=== PATIENT | male | born 1940 | race Caucasian/White ===

== ENCOUNTER 2018-03-23 12:13 | Emergency (ER) | payer MEDICARE, BC ==
[2018-03-23 12:39] VITALS: BP 143/79
--- NOTE | 2018-03-23 13:57 | UC ---
Hip/Pelvis Pain - HPI Summary HPI Summary: states yesterday he was mowing his lawn all day and lifting chairs up a staircase after which he had right low back and hip pain which resolved with ibuprofen and then with tylenol. Patient states he does not have any pain at the moment, no radiation, no limitation with ambulation. - History Of Current Complaint Chief Complaint: UCBackPain Stated Complaint: BACK PAIN Time Seen by Provider: 03/23/18 12:50 Hx Obtained From: Patient Onset/Duration: Sudden Onset, Lasting Hours Timing: Constant Severity Initially: Moderate Severity Currently: None Pain Intensity: 0 Location: Discrete At: - right hip and low back Character Of Pain: Aching Aggravating Factor(s): Movement Alleviating Factor(s): OTC Medications Associated Signs And Symptoms: Positive: Negative - Risk Factors Septic Arthritis Risk Factor: Negative - Allergies/Home Medications Allergies/Adverse Reactions: Allergies Allergy/AdvReac Type Severity Reaction Status Date / Time No Known Allergies Allergy Verified 01/05/16 15:05 Home Medications: Home Medications Acetaminophen [Tylenol] 650 mg PO Q6HR PRN 03/23/18 [History Confirmed 03/23/18] PMH/Surg Hx/FS Hx/Imm Hx Previously Healthy: Yes Endocrine History: Hypothyroidism Cardiovascular History: Hypertension - Surgical History Surgical History: Yes Surgery Procedure, Year, and Place: rt. knee replacement. rt. shoulder replacement - Social History Alcohol Use: Daily Alcohol Amount: 1 PER DAY Substance Use Type: None Smoking Status (MU): Former Smoker Amount Used/How Often: <1 PPD X 20 YEARS Have You Smoked in the Last Year: No When Did the Patient Quit Smoking/Using Tobacco: 1980 Review of Systems Musculoskeletal: Arthralgia, Myalgia All Other Systems Reviewed And Are Negative: Yes Physical Exam Triage Information Reviewed: Yes Appearance: Well-Appearing, No Pain Distress, Well-Nourished Vital Signs: Initial Vital Signs Temp 98.8 F 03/23/18 12:30 Pulse 68 03/23/18 12:30 Resp 18 03/23/18 12:30 BP 143/79 03/23/18 12:30 Pulse Ox 98 03/23/18 12:30 Vital Signs Reviewed: Yes Eyes: Positive: Conjunctiva Clear ENT: Positive: Hearing grossly normal Neck: Positive: Nontender Respiratory: Positive: Chest non-tender Cardiovascular: Positive: Pulses Normal, Brisk Capillary Refill Musculoskeletal Exam: Other - tender on right pyriformis muscle area, SLR negative, Idania negative, DTR symmetric and present Hip Injury Course/Dx - Course Course Of Treatment: patient's pain was resolved with OCD medications, d/w patient management, states he will monitor at home, if pain recurs, will f/u with PCP to assess need for imaging, stretching exercises d/w patient. Continue motrin or tylenol prn, ice packs. xray order was misplaced and patient states he does not want the xray anymore and that he can f/u with PMD - Differential Dx/Diagnosis Provider Diagnoses: Piriformis muscle spasm/strain Discharge - Sign-Out/Discharge Documenting (check all that apply): Discharge/Admit/Transfer - Discharge Plan Condition: Good Disposition: HOME Patient Education Materials: Low Back Strain (ED), Piriformis Syndrome (ED) Referrals: Alexus Spence MD [Primary Care Provider] - - Billing Disposition and Condition Condition: GOOD Disposition: Home
== END 2018-03-23 13:38 | disposition left against medical advice (07) ==
LOC: MERGE 12:13 → UNMERGE 12:13 → UCEAST 12:13
DX: M62.838 Other muscle spasm (principal); S76.911A Strain of unspecified muscles, fascia and tendons at thigh level, right thigh, initial encounter; X50.3XXA Overexertion from repetitive movements, initial encounter; Y93.9 Activity, unspecified; Y92.9 Unspecified place or not applicable; E03.9 Hypothyroidism, unspecified; I10 Essential (primary) hypertension; Z96.651 Presence of right artificial knee joint; Z96.611 Presence of right artificial shoulder joint; Z87.891 Personal history of nicotine dependence

== ENCOUNTER 2019-04-07 11:43 | Emergency (ER) | payer MEDICARE, BC, OTHER ==
[2019-04-07 12:01] VITALS: BP 115/65
--- NOTE | 2019-04-07 12:37 | ED ---
Influenza-Like Illness - HPI Summary HPI Summary: Patient is a 78-year-old male who presents to the emergency department with with a chief complaint of having weakness, decreased appetite, fevers of 103 this morning, fatigue and body aches. Pt feels "washed out." states pt feels chills and hot and sweaty. pt states temp max 103 this am. pt has not been feeling well for about 1 week, fever the last 3 days. - History of Current Complaint Chief Complaint: UCRespiratory Time Seen by Provider: 04/07/19 12:13 Hx Obtained From: Patient Onset/Duration: Gradual Onset Severity: Mild Associated Signs & Symptoms: Fever, Myalgia, Cough - Allergy/Home Medications Allergies/Adverse Reactions: Allergies Allergy/AdvReac Type Severity Reaction Status Date / Time No Known Allergies Allergy Verified 04/07/19 12:00 Home Medications: Home Medications Amlodipine Besylate [Amlodipine 2.5 mg tab] 2.5 mg PO DAILY 04/07/19 [History Confirmed 04/07/19] Levothyroxine TAB* [Synthroid TAB*] 175 mcg PO 0600 04/07/19 [History Confirmed 04/07/19] PMH/Surg Hx/FS Hx/Imm Hx Previously Healthy: Yes Endocrine/Hematology History: Reports: Hx Thyroid Disease Denies: Hx Diabetes Cardiovascular History: Reports: Hx Hypertension Denies: Hx Pacemaker/ICD Respiratory History: Reports: Hx Sleep Apnea Denies: Hx Asthma, Hx Chronic Obstructive Pulmonary Disease (COPD) GI History: Denies: Hx Ulcer Musculoskeletal History: Reports: Hx Arthritis - MOST JOINTS, MILD EXCEPT FOR RIGHT LEG Sensory History: Reports: Hx Cataracts - BILATERAL, Hx Contacts or Glasses - READING GLASSES Denies: Hx Hearing Aid Opthamlomology History: Reports: Hx Cataracts - BILATERAL, Hx Contacts or Glasses - READING GLASSES - Surgical History Surgery Procedure, Year, and Place: rt. knee replacement. rt. shoulder replacement Hx Anesthesia Reactions: No Infectious Disease History: No Infectious Disease History: Reports: Hx Shingles - 1990s, NO RESIDUAL PROBLEMS Denies: Hx Hepatitis, Hx Human Immunodeficiency Virus (HIV), Traveled Outside the [place] in Last 30 Days - Family History Known Family History: Positive: Non-Contributory - Social History Alcohol Use: Daily Alcohol Amount: 1 PER DAY Substance Use Type: Reports: None Hx Tobacco Use: Yes Smoking Status (MU): Former Smoker Amount Used/How Often: <1 PPD X 20 YEARS Have You Smoked in the Last Year: No Review of Systems Positive: Fever, Chills Eyes: Negative ENT: Negative Cardiovascular: Negative Positive: Cough Gastrointestinal: Negative Genitourinary: Negative Musculoskeletal: Negative Skin: Negative Neurological: Negative Psychological: Normal All Other Systems Reviewed And Are Negative: Yes Physical Exam - Summary Physical Exam Summary: VITAL SIGNS: Reviewed. GENERAL: Patient is a well developed and nourished male who is lying comfortably in the stretcher. Patient is not in any acute respiratory distress. HEAD AND FACE: No signs of trauma. No ecchymosis, hematomas or skull depressions. No sinus tenderness. EYES: PERRLA, EOMI x 2, No injected conjunctiva, no nystagmus. EARS: Hearing grossly intact. Ear canals and tympanic membranes are within normal limits. MOUTH: Oropharynx within normal limits. NECK: Supple, trachea is midline, no adenopathy, no JVD, no carotid bruit, no c- spine tenderness, neck with full ROM. CHEST: Symmetric, no tenderness at palpation LUNGS: Clear to auscultation bilaterally. No wheezing or crackles. CVS: Regular rate and rhythm, S1 and S2 present, no murmurs or gallops appreciated. ABDOMEN: Soft, non-tender. No signs of distention. No rebound no guarding, and no masses palpated. Bowel sounds are normal. EXTREMITIES: FROM in all major joints, no edema, no cyanosis or clubbing. NEURO: Alert and oriented x 3. No acute neurological deficits. Speech is normal and follows commands. SKIN: Dry and warm Triage Information Reviewed: Yes Vital Signs On Initial Exam: Initial Vitals Temp Pulse Resp BP Pulse Ox 99.4 F 86 18 115/65 95 04/07/19 11:54 04/07/19 11:54 04/07/19 11:54 04/07/19 11:54 04/07/19 11:54 Vital Signs Reviewed: Yes Diagnostics - Vital Signs Vital Signs Temp Pulse Resp BP Pulse Ox 04/07/19 11:54 99.4 F 86 18 115/65 95 - Laboratory Lab Statement: Any lab studies that have been ordered have been reviewed, and results considered in the medical decision making process. Flu Symptom Course/Dx - Course Assessment/Plan: In the urgent care the patient is well-appearing, not ill looking. He is comfortable and hemodynamically stable. Chest x-ray impression : no acute cardiopulmonary pathology. Urinalysis: Urinalysis with 2+ protein, trace ketones, trace blood, and 1+ bilirubin. In the urgent care course unable to find the source of infection. The patient is afebrile in the urgent care. Therefore, the patient was advised to follow with the primary care physician tomorrow or if he develops any other symptom he shell go to the emergency room for further workup and management. The patient understands and agrees. - Diagnoses Provider Diagnoses: Fever, Weakness Discharge - Sign-Out/Discharge Documenting (check all that apply): Patient Departure All imaging exams completed and their final reports reviewed: Yes - Discharge Plan Condition: Stable Disposition: HOME Patient Education Materials: Fever in Adults (ED), Weakness (ED) Referrals: Alexus Spence MD [Primary Care Provider] - Additional Instructions: Increase her water intake. Increase your fluid intake F/U with PCP in the next day Return to the if symptoms worsen - Billing Disposition and Condition Condition: STABLE Disposition: Home
== END 2019-04-07 13:20 | disposition home or self-care (01) ==
LOC: UCEAST 11:43
DX: R50.9 Fever, unspecified (principal); R53.83 Other fatigue; I10 Essential (primary) hypertension; E07.9 Disorder of thyroid, unspecified; Z87.891 Personal history of nicotine dependence
CPT/HCPCS: 71046; 81003; 99211; G0463

== ENCOUNTER 2019-04-08 16:05 | Inpatient (IN) | payer MEDICARE, BC, OTHER ==
[2019-04-08] MEDS ORDERED: NS 0.9% 1000 ML** 1,000 ML IV.FLUID IV ONE (16:36)
[2019-04-08 17:33] LABS: Hematocrit 31 % (42-52); Hemoglobin 10.7 g/dL (14.0-18.0); Mean Corpuscular HGB Conc 35 g/dL (31-36); Mean Corpuscular Hemoglobin 29 pg (27-31); Mean Corpuscular Volume 85 fL (80-94); Red Blood Count 3.66 10^6 /uL (4.18-5.48); Red Cell Distribution Width 15 % (10-15); White Blood Count 4.1 10^3/uL (3.5-10.8)
[2019-04-08 17:37] LABS: Activated Partial Thrombo Time 34.4 seconds (26.0-38.0); INR 1.36 (0.82-1.09)
[2019-04-08 17:39] LABS: Urine Appearance Cloudy; Urine Bacteria Absent (Absent); Urine Bilirubin Negative (Negative); Urine Blood 2+ (Negative); Urine Color Amber; Urine Glucose Negative (Negative); Urine Ketones Negative (Negative); Urine Nitrite Negative (Negative); Urine Protein 2+(100 mg/dL) (Negative); Urine Red Blood Cell 3+(>10/hpf) (Absent); Urine Specific Gravity 1.028 (1.010-1.030); Urine Urobilinogen Positive (Negative); Urine White Blood Cell Trace(0-5/hpf) (Absent)
[2019-04-08 18:03] LABS: ABS Lymphocytes 0.9 10^3/ul (1.0-4.8); ABS Neutrophils 2.2 10^3/ul (1.5-7.7); Lymphocyte % 22.6 %; Mean Platelet Volume 8.7 fL (7.4-10.4); Nucleated Red Blood Cells % 0.1; Platelet Count 64 10^3/uL (150-450)
[2019-04-08 18:04] LABS: ALT 43 U/L (7-52); AST 55 U/L (13-39); Albumin 3.2 g/dL (3.2-5.2); Albumin/Globulin Ratio 0.9 (1-3); Alkaline Phosphatase 45 U/L (34-104); Anion Gap 7 mmol/L (2-11); BUN/Creatinine Ratio 19.1 (8-20); Blood Urea Nitrogen 27 mg/dL (6-24); C Reactive Protein 232.22 mg/L (<8.01); CO2 Carbon Dioxide 23 mmol/L (22-32); Calcium 8.4 mg/dL (8.6-10.3); Chloride 103 mmol/L (101-111); EGFR Non-African American 48.7 (>60); Globulin 3.4 g/dL (2-4); Glucose 136 mg/dL (70-100); Potassium 4.2 mmol/L (3.5-5.0); Sodium 133 mmol/L (135-145); Total Protein 6.6 g/dL (6.4-8.9)
[2019-04-08 18:10] LABS: Troponin I 0.04 ng/mL (<0.04)
[2019-04-08 19:54] LABS: Troponin I 0.04 ng/mL (<0.04)
--- NOTE | 2019-04-08 21:06 | ED ---
HPI Febrile Illness - HPI Summary HPI Summary: Patient complains of fever up to 130 3 days, diaphoresis, weakness, decreased by mouth intake and body aches. States "not feeling well" x 1 week. Seen at urgent care yesterday for same. Seen by PCP today. Denies headache, sore throat, ear pain, neck stiffness, cough, CP, SOB, N/V/D, abdominal pain, change in urine, change in BM. Medical history is hypothyroid, hypertension, A. fib. Chest x-ray and UA at urgent care on 04/07 negative. - History of Current Complaint Chief Complaint: EDFever Time Seen by Provider: 04/08/19 16:33 Hx Obtained From: Patient Onset/Duration: Started Days Ago Timing: Intermittent Current Severity: None Pain Intensity: 0 Pain Scale Used: 0-10 Numeric Associated Signs and Symptoms: Negative - Allergy/Home Medications Allergies/Adverse Reactions: Allergies Allergy/AdvReac Type Severity Reaction Status Date / Time No Known Allergies Allergy Verified 04/08/19 16:14 Home Medications: Home Medications Acetaminophen [Tylenol Extra Strength] 1,000 mg PO Q6HR 04/08/19 [History Confirmed 04/08/19] Acetaminophen [Tylenol Extra Strength] 1,000 mg PO Q6HR PRN 04/08/19 [History Confirmed 04/08/19] Levothyroxine TAB* [Synthroid TAB*] 150 mcg PO EVERY OTHER DAY 04/08/19 [ History Confirmed 04/08/19] Losartan TAB* [Cozaar TAB*] 50 mg PO DAILY 04/08/19 [History Confirmed 04/08/19] Sildenafil (NF) [Viagra (NF)] 100 mg PO DAILY PRN 04/08/19 [History Confirmed ] Tamsulosin CAP* [Flomax CAP*] 0.4 mg PO DAILY 04/08/19 [History Confirmed ] amLODIPine TAB* [Norvasc 5 mg TAB*] 2.5 mg PO DAILY 04/08/19 [History Confirmed 04/08/19] dilTIAZem HCl [Dilt-Xr] 120 mg PO DAILY 04/08/19 [History Confirmed 04/08/19] PMH/Surg Hx/FS Hx/Imm Hx Endocrine/Hematology History: Reports: Hx Thyroid Disease Denies: Hx Diabetes Cardiovascular History: Reports: Hx Hypertension Denies: Hx Pacemaker/ICD Respiratory History: Reports: Hx Sleep Apnea Denies: Hx Asthma, Hx Chronic Obstructive Pulmonary Disease (COPD) GI History: Denies: Hx Ulcer Musculoskeletal History: Reports: Hx Arthritis - MOST JOINTS, MILD EXCEPT FOR RIGHT LEG Sensory History: Reports: Hx Cataracts - BILATERAL, Hx Contacts or Glasses - READING GLASSES Denies: Hx Hearing Aid Opthamlomology History: Reports: Hx Cataracts - BILATERAL, Hx Contacts or Glasses - READING GLASSES EENT History: Denies: Hx Deafness Neurological History: Denies: Hx Developmental Delay Psychiatric History: Denies: Hx Autism - Surgical History Surgery Procedure, Year, and Place: rt. knee replacement. rt. shoulder replacement Hx Anesthesia Reactions: No Infectious Disease History: No Infectious Disease History: Reports: Hx Shingles - , NO RESIDUAL PROBLEMS Denies: Hx Hepatitis, Hx Human Immunodeficiency Virus (HIV), Traveled Outside the [place] in Last 30 Days - Family History Known Family History: Positive: Non-Contributory - Social History Alcohol Use: Daily Alcohol Amount: 1 PER DAY Substance Use Type: Reports: None Hx Tobacco Use: Yes Smoking Status (MU): Former Smoker Amount Used/How Often: <1 PPD X 20 YEARS Have You Smoked in the Last Year: No Review of Systems Positive: Fatigue Eyes: Negative ENT: Negative Cardiovascular: Negative Respiratory: Negative Gastrointestinal: Negative Genitourinary: Negative Positive: Myalgia Skin: Negative Positive: Weakness Psychological: Normal All Other Systems Reviewed And Are Negative: Yes Physical Exam - Summary Physical Exam Summary: Lung sounds clear to auscultation bilaterally. Abdomen soft nontender. No peripheral edema. RRR. ENT exam unremarkable. Triage Information Reviewed: Yes Vital Signs On Initial Exam: Initial Vitals Temp Pulse Resp BP Pulse Ox 100.5 F 92 20 110/49 95 04/08/19 16:11 04/08/19 16:11 04/08/19 16:11 04/08/19 16:11 04/08/19 16:11 Vital Signs Reviewed: Yes Appearance: Positive: Well-Appearing Skin: Positive: Warm Head/Face: Positive: Normal Head/Face Inspection Eyes: Positive: Normal ENT: Positive: Normal ENT inspection Neck: Positive: Supple Respiratory/Lung Sounds: Positive: Clear to Auscultation Cardiovascular: Positive: Normal Abdomen Description: Positive: Nontender Musculoskeletal: Positive: Normal Neurological: Positive: Normal Psychiatric: Positive: Normal AVPU Assessment: Alert - [place] Coma Scale Best Eye Response: 4 - Spontaneous Best Motor Response: 6 - Obeys Commands Best Verbal Response: 5 - Oriented Coma Scale Total: 15 Diagnostics - Vital Signs Vital Signs Temp Pulse Resp BP Pulse Ox 04/08/19 19:50 79 17 128/67 94 04/08/19 16:53 94 04/08/19 16:11 100.5 F 92 20 110/49 95 - Laboratory Lab Results: Lab Results 04/08/19 04/08/19 04/08/19 Range/Units 17:09 17:09 17:09 WBC 4.1 (3.5-10.8) 10^3/uL RBC 3.66 L (4.18-5.48) 10^6 /uL Hgb 10.7 L (14.0-18.0) g/dL Hct 31 L (42-52) % MCV 85 (80-94) fL MCH 29 (27-31) pg MCHC 35 (31-36) g/dL RDW 15 (10-15) % Plt Count 64 L (150-450) 10^3/uL MPV 8.7 (7.4-10.4) fL Neut % (Auto) 53.4 % Lymph % (Auto) 22.6 % [place] % (Auto) 23.4 % Eos % (Auto) 0.0 % Baso % (Auto) 0.6 % Absolute Neuts (auto) 2.2 (1.5-7.7) 10^3/ul Absolute Lymphs (auto) 0.9 L (1.0-4.8) 10^3/ul Absolute Monos (auto) 1.0 H (0-0.8) 10^3/ul Absolute Eos (auto) 0.0 (0-0.6) 10^3/ul Absolute Basos (auto) 0.0 (0-0.2) 10^3/ul Absolute Nucleated RBC 0.0 10^3/ul Immature Gran % 1.0 (0-9) % Neutrophils % 58.0 % Band Neutrophils % 1.0 (0-8) % Lymphocytes % 21.0 % Reactive Lymphs % 1.0 (0-6) % Monocytes % 19.0 % Nucleated RBC % 0.1 Normal RBC Morphology Normal (Normal) Hem Pathologist Commnt Pending INR (Anticoag Therapy) 1.36 H (0.82-1.09) APTT 34.4 (26.0-38.0) seconds Sodium 133 L (135-145) mmol/L Potassium 4.2 (3.5-5.0) mmol/L Chloride 103 (101-111) mmol/L Carbon Dioxide 23 (22-32) mmol/L Anion Gap 7 (2-11) mmol/L BUN 27 H (6-24) mg/dL Creatinine 1.41 H (0.67-1.17) mg/dL Est GFR ( Amer) 59.0 (>60) Est GFR (Non-Af Amer) 48.7 (>60) BUN/Creatinine Ratio 19.1 (8-20) Glucose 136 H (70-100) mg/dL Lactic Acid (0.5-2.0) mmol/L Calcium 8.4 L (8.6-10.3) mg/dL Total Bilirubin 1.60 H (0.2-1.0) mg/dL AST 55 H (13-39) U/L ALT 43 (7-52) U/L Alkaline Phosphatase 45 (34-104) U/L Troponin I 0.04 H* (<0.04) ng/mL C-Reactive Protein 232.22 H (<8.01) mg/L Total Protein 6.6 (6.4-8.9) g/dL Albumin 3.2 (3.2-5.2) g/dL Globulin 3.4 (2-4) g/dL Albumin/Globulin Ratio 0.9 L (1-3) Urine Color Urine Appearance Urine pH (5-9) Ur Specific [place] (1.010-1.030) Urine Protein (Negative) Urine Ketones (Negative) Urine Blood (Negative) Urine Nitrate (Negative) Urine Bilirubin (Negative) Urine Urobilinogen (Negative) Ur Leukocyte Esterase (Negative) Urine WBC (Auto) (Absent) Urine RBC (Auto) (Absent) Urine Bacteria (Absent) Urine Glucose (Negative) 04/08/19 04/08/19 04/08/19 Range/Units 17:09 17:24 19:23 WBC (3.5-10.8) 10^3/uL RBC (4.18-5.48) 10^6 /uL Hgb (14.0-18.0) g/dL Hct (42-52) % MCV (80-94) fL MCH (27-31) pg MCHC (31-36) g/dL RDW (10-15) % Plt Count (150-450) 10^3/uL MPV (7.4-10.4) fL Neut % (Auto) % Lymph % (Auto) % [place] % (Auto) % Eos % (Auto) % Baso % (Auto) % Absolute Neuts (auto) (1.5-7.7) 10^3/ul Absolute Lymphs (auto) (1.0-4.8) 10^3/ul Absolute Monos (auto) (0-0.8) 10^3/ul Absolute Eos (auto) (0-0.6) 10^3/ul Absolute Basos (auto) (0-0.2) 10^3/ul Absolute Nucleated RBC 10^3/ul Immature Gran % (0-9) % Neutrophils % % Band Neutrophils % (0-8) % Lymphocytes % % Reactive Lymphs % (0-6) % Monocytes % % Nucleated RBC % Normal RBC Morphology (Normal) Hem Pathologist Commnt INR (Anticoag Therapy) (0.82-1.09) APTT (26.0-38.0) seconds Sodium (135-145) mmol/L Potassium (3.5-5.0) mmol/L Chloride (101-111) mmol/L Carbon Dioxide (22-32) mmol/L Anion Gap (2-11) mmol/L BUN (6-24) mg/dL Creatinine (0.67-1.17) mg/dL Est GFR ( Amer) (>60) Est GFR (Non-Af Amer) (>60) BUN/Creatinine Ratio (8-20) Glucose (70-100) mg/dL Lactic Acid 1.1 (0.5-2.0) mmol/L Calcium (8.6-10.3) mg/dL Total Bilirubin (0.2-1.0) mg/dL AST (13-39) U/L ALT (7-52) U/L Alkaline Phosphatase (34-104) U/L Troponin I 0.04 H* (<0.04) ng/mL C-Reactive Protein (<8.01) mg/L Total Protein (6.4-8.9) g/dL Albumin (3.2-5.2) g/dL Globulin (2-4) g/dL Albumin/Globulin Ratio (1-3) Urine Color [place] Urine Appearance Cloudy Urine pH 5.0 (5-9) Ur Specific [place] 1.028 (1.010-1.030) Urine Protein 2+(100 mg/dl) A (Negative) Urine Ketones Negative (Negative) Urine Blood 2+ A (Negative) Urine Nitrate Negative (Negative) Urine Bilirubin Negative (Negative) Urine Urobilinogen Positive A (Negative) Ur Leukocyte Esterase Negative (Negative) Urine WBC (Auto) Trace(0-5/hpf) (Absent) Urine RBC (Auto) 3+(>10/hpf) A (Absent) Urine Bacteria Absent (Absent) Urine Glucose Negative (Negative) Result Diagrams: 04/12/19 10:34 04/12/19 10:34 Lab Statement: Any lab studies that have been ordered have been reviewed, and results considered in the medical decision making process. Course/Dx - Course Course Of Treatment: Patient complains of fever up to 130 3 days, diaphoresis, weakness, decreased by mouth intake and body aches. States "not feeling well" x 1 week. Seen at urgent care yesterday for same. Seen by PCP today. Denies headache, sore throat, ear pain, neck stiffness, cough, CP, SOB, N/V/D, abdominal pain, change in urine, change in BM. Medical history is hypothyroid, hypertension, A. fib. Chest x-ray and UA at urgent care on 04/07 negative. Temp 100.5. Vital signs otherwise within normal limits. Labs unremarkable. PCP called to ask for Anaplasma test. Admitted to hospitals for febrile illness - Diagnoses Provider Diagnoses: Febrile illness Discharge - Sign-Out/Discharge Documenting (check all that apply): Patient Departure - Discharge Plan Condition: Stable Disposition: ADMITTED TO [facility] - Billing Disposition and Condition Condition: STABLE Disposition: Admitted to [facility]
[2019-04-08] MEDS: Heparin VIAL(*) 5000 UNITS/ML VIAL (FIVE THOUSAND) SUBCUT SCH (22:20)
[2019-04-08] MEDS ORDERED: Acetaminophen TAB* 325 MG PO PRN (22:39)
[2019-04-08 22:54] LABS: Indirect Bilirubin 1.2 mg/dL (0.3-1.0)
[2019-04-08] MEDS ORDERED: DOXYcycline CAP(*) 100 MG PO SCH (23:00)
[2019-04-08 23:19] LABS: TSH (Thyroid Stimulating Horm) 2.78 mcIU/mL (0.34-5.60)
--- NOTE | 2019-04-09 00:17 | HP ---
CC: Dr. Spence * HISTORY AND PHYSICAL: DATE OF ADMISSION: 04/08/19 PRIMARY CARE PROVIDER: Dr. Spence. ATTENDING PHYSICIAN: Dr. Piedra * (dictated by YARED Mcnamara). CHIEF COMPLAINT: "I didn't feel well." HISTORY OF PRESENT ILLNESS: Mr. Sainz is a 78-year-old male with past medical history of hypertension, hyperlipidemia, hypothyroid, obstructive sleep apnea, asthma, obesity, who presented to the ER yesterday and today with elevated temperatures. He notes that his temperature has been up to 104.3 with associated chill, sweats. This all began on Sunday night with chills. He began taking his temperature on Sunday and that has slowly increased since with T-max of 104.3. He does note that he has felt disoriented/"off" for the last approximately 1 month. He denies confusion or altered mentation. He reports associated decrease in energy and appetite for the last week as well. Again, it is noted that he was in the ER yesterday with fatigue, body aches, and fever. The patient notes that he traveled to [place] approximately 7 months ago over [employer] vacation. He went for frequent walks outside but did not walk through the [facility]. This has been his only travel in the last approximately 1 year. He does note that he is outside often working in his yard , etc. He has a history of dermatitis in the legs, hip, and shoulders. He follows with Dermatology for this and was diagnosed with dermatitis. He notes no other rashes or skin abnormalities. He does have a cough that is chronic that has not changed over the last 6 months. He notes right knee pain for approximately 2 weeks without associated erythema or edema. He denies changes in vision, changes in speech. He denies medication changes. He has not noticed recent bug, insect bites or ticks. He denies rash including petechial rash, bullseye rash, rash on the face. Again, it is noted that he does have dermatitis, which is treated with topical triamcinolone as needed. The patient denies hematuria, changes in urination. The patient denies chest pain, shortness of breath, abdominal pain, nausea, vomiting, diarrhea, or constipation. In the ER, the patient received a full workup, which included CBC revealing anemia. CMP revealing decreased creatinine, increased total bilirubin, increased AST. The patient was noted to have slight elevation in troponins x2. C-reactive protein was elevated. Urinalysis revealed positive blood, protein , and urobilinogen. Ultrasound of the bladder showed enlarged prostate. The patient was also noted to have elevated creatinine. Temperature in the ER was 100.5. The patient received 2.5 L bolus of normal saline. PAST MEDICAL HISTORY: 1. Hypertension. 2. Hyperlipidemia. 3. Hypothyroidism. 4. Mild asthma. 5. Obstructive sleep apnea, on CPAP. 6. Obesity. 7. History of West Nile virus. 8. History of Lyme disease. PAST SURGICAL HISTORY: Right total knee arthroplasty 2012, right shoulder 2011 , C4- 5 disk 2005, cystoscopy. HOME MEDICATIONS: 1. Acetaminophen 1000 mg p.o. q.6 hours p.r.n. pain. 2. Amlodipine 2.5 mg p.o. daily. 3. Cyanocobalamin 100 mcg p.o. daily. 4. Diltiazem 120 mg p.o. daily. 5. Fluticasone/salmeterol 100/50 one puff inhalation b.i.d. 6. Ibuprofen 400 mg p.o. at bedtime. 7. Levothyroxine 150 mcg, 175 mcg alternating every other day. 8. Losartan 50 mg p.o. daily. 9. Sildenafil 100 mg p.o. daily p.r.n. ED. 10. Simvastatin 20 mg p.o. at bedtime. 11. Tamsulosin 0.4 mg p.o. daily. DRUG ALLERGIES: No known drug allergies. FAMILY HISTORY: Positive for diabetes mellitus, CVA, heart disease. Negative for cancer. SOCIAL HISTORY: The patient is a former smoker. He states he quit in approximately 1971. Prior to that, he smoked approximately 1 pack per day for 15 years. He does use alcohol. He drinks 1 to 2 beverages per day noting that he has been drinking less in the last approximately 2 months. He is retired from [employer]. 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 In the event that he is unable to make his own medical decisions, he has appointed his , Indy Sainz, to be his surrogate decision maker. REVIEW OF SYSTEMS: A 10-point review of systems was performed and all the pertinent positives and negatives are in the HPI. All other systems are negative. PHYSICAL EXAMINATION GENERAL: Mr. Sainz is a well-developed, well-nourished, obese, 78-year-old white male, who is sitting up in bed. He appears well. He appears to be in no acute distress. He is calm, cooperative, and appropriate. He is pleasant to talk to and answers questions appropriately. He appears to be in no acute distress. VITAL SIGNS: Temperature 100.5 temporal, heart rate 78, respiratory rate 26, oxygen saturation 96% on room air, blood pressure 157/84. HEENT: PERRL. Extraocular movements intact. Nonicteric sclerae. Hearing grossly intact. External auditory canals patent without cerumen. Tympanic membranes intact. Nares patent and nonerythematous. Oral mucous membranes are moist. There are no lesions. Pharynx is clear. NECK: Full range of motion. Trachea midline. There is no lymphadenopathy. RESPIRATORY: Symmetrical chest expansion without use of accessory muscles. Lungs are clear to auscultation bilaterally without rhonchi, wheezes, or rubs. CARDIOVASCULAR: Regular rate and rhythm with S1, S2 present without murmurs, rubs, clicks, or gallops. There is no JVD. ABDOMEN: Bowel sounds in all quadrants. The abdomen is soft. There is no tenderness to palpation. There is no hepatosplenomegaly. MUSCULOSKELETAL: Full range of motion without pain or deformities. Joints without erythema or swelling. EXTREMITIES: Skin is warm and smooth bilaterally without clubbing, cyanosis, or edema. Radial and pedal pulses are palpable. NEURO: The patient is awake. He is alert and oriented x3. He is able to move all of his extremities. SKIN: Grossly intact without lesions or rashes noted. DIAGNOSTIC STUDIES/LAB DATA: EKG: Normal sinus rhythm, rate [address] depression or elevation. Bladder ultrasound for hematuria 04/08/19, impression: The prostate is enlarged with a prostate volume of 72 mL. There are prostatic calcification noted. Chest x-ray, 04/07/19, impression: No active cardiopulmonary disease noted. Laboratory data: WBC 4.1, RBC 3.66, HGB 10.7, HCT 31, platelets 64. Sodium 133 , BUN 27, creatinine 1.41, glucose 136, calcium 8.4, total bili 1.6, AST 55. Troponin 0.04 x2. CRP 232.22. ASSESSMENT AND PLAN: Mr. Sainz is a 78-year-old male with past medical history of hypertension, hyperlipidemia, hypothyroidism, obstructive sleep apnea , who presented to the ER with complaints of fever, chills, decreased energy, decreased appetite. The patient will be admitted to observation for: 1. Fever of unknown origin. The patient has home T-max of 104.3 at home. T- max in the ER 100.5. Chest x-ray on 04/07/19 was negative. UA negative for leukocyte esterase or nitrites. The patient denies abdominal complaints including pain, nausea, vomiting, diarrhea. He was noted to have an elevated CRP. There is concern for Lyme disease or tick borne illness. Labs for blood cultures have been sent. Tick-borne panel and Ehrlichia/anaplasma PCR has been sent. DEBBIE ordered. The patient will be started on doxycycline 100 mg p.o. b.i.d. for the time being. This may be adjusted based on returning lab data. Tylenol ordered for fever. 2. Anemia. The patient has low hemoglobin, hematocrit and platelets. He is also noted to have an elevated bilirubin. This could be reactive or related to tick-borne illness. It could be related to hemolysis. Direct and indirect bilirubin added to lab requests. Continue to monitor CBC. 3. Elevated creatinine. The patient's creatinine is elevated above baseline. He has no history of kidney disease. He has been given 2.5 L bolus. This may represent acute kidney injury from hypovolemia. We will recheck lab values in the a.m. 4. Elevated troponin. The patient's troponin are mildly elevated at 0.04 x2. We will continue to trend troponins. 5. Hematuria. The patient denies gross hematuria but was noted to have blood and red blood cells in his urine. Ultrasound of the bladder is positive for enlarged prostate only. He has a known history of BPH. 6. Hypertension. Continue amlodipine, losartan, diltiazem. 7. Hyperlipidemia. Continue statin. 8. Hypothyroid. Continue levothyroxine. 9. Asthma. Continue Advair. 10. Benign prostatic hypertrophy. Continue Flomax. 11. Obstructive sleep apnea. The patient did not bring his CPAP machine. He is allowed to use hospital CPAP machine. 12. DVT prophylaxis. According to the DVT Risk Assessment, the patient scores 3 and is placed at high risk. He will be placed on heparin subcu. 13. Code status. Full code. TIME SPENT: Approximately 60 minutes was spent on this admission, greater than half of that time was spent with the patient and his obtaining history, performing physical and reviewing the plan of care. The case has been reviewed with my attending, Dr. Piedra, who is in agreement with the plan of care. YARED HOLLIDAY [id number]/CPS #: [id number] MTDBarron
[2019-04-09 01:39] LABS: Troponin I 0.05 ng/mL (<0.04)
[2019-04-09] MEDS: Acetaminophen TAB* 325 MG PO PRN ×3 (04:18→23:58)
[2019-04-09] MEDS: Levothyroxine TAB* 150 MCG TAB PO SCH (05:54)
[2019-04-09] MEDS: Heparin VIAL(*) 5000 UNITS/ML VIAL (FIVE THOUSAND) SUBCUT SCH (05:55)
[2019-04-09 06:03] LABS: Hematocrit 29 % (42-52); Hemoglobin 10.1 g/dL (14.0-18.0); Mean Corpuscular HGB Conc 35 g/dL (31-36); Mean Corpuscular Hemoglobin 29 pg (27-31); Mean Corpuscular Volume 85 fL (80-94); Mean Platelet Volume 8.5 fL (7.4-10.4); Platelet Count 56 10^3/uL (150-450); Red Blood Count 3.44 10^6 /uL (4.18-5.48); Red Cell Distribution Width 16 % (10-15); White Blood Count 3.3 10^3/uL (3.5-10.8)
[2019-04-09 06:19] LABS: Albumin 2.9 g/dL (3.2-5.2); Albumin/Globulin Ratio 0.9 (1-3); BUN/Creatinine Ratio 19.8 (8-20); Calcium 8.1 mg/dL (8.6-10.3); EGFR African American 77.7 (>60); EGFR Non-African American 64.2 (>60); Globulin 3.3 g/dL (2-4); Potassium 4.1 mmol/L (3.5-5.0); Total Bilirubin 1.6 mg/dL (0.2-1.0); Total Protein 6.2 g/dL (6.4-8.9)
[2019-04-09] MEDS: Mometasone/Formoter 100/5 MDI INH SCH ×2 (07:15→22:35)
[2019-04-09 07:48] LABS: ABS Lymphocytes 0.8 10^3/ul (1.0-4.8); ABS Monocytes 0.6 10^3/ul (0-0.8); ABS Neutrophils 1.9 10^3/ul (1.5-7.7); Eosinophil % 0.2 %; Lymphocyte % 24.1 %; Nucleated Red Blood Cells % 0.2
[2019-04-09] MEDS ORDERED: NS 0.9% 1000 ML** 1,000 ML IV ONE (07:55)
[2019-04-09] MEDS: amLODIPine TAB* 5 MG PO SCH (08:17)
[2019-04-09] MEDS: Tamsulosin CAP* 0.4 MG PO SCH (08:17)
[2019-04-09] MEDS: Diltiazem CD CAP* 120 MG PO SCH (08:17)
[2019-04-09] MEDS: Losartan TAB* 25 MG PO SCH (08:19)
[2019-04-09] MEDS: CYANOCOBALAMIN 100 MCG PO SCH (08:23)
[2019-04-09 08:51] LABS: RBC Parasite Smear Parasites Seen (No Parasite)
[2019-04-09 10:07] LABS: Erythrocyte Sed Rate 93 mm/Hr (0-19)
[2019-04-09] MEDS: DOXYcycline IV* 100 MG in NS 0.9% 250 ML* 250 ML IVPB SCH ×2 (10:40→20:53)
[2019-04-09] MEDS: Azithromycin 500 mg/250 ml NS 500 MG/250 ML BAG IVPB SCH (15:30)
--- NOTE | 2019-04-09 17:07 | PN ---
Subjective Date of Service: 04/09/19 Interval History: Pt admitted yesterday. Reports feeling disappointed in himself but also confused. Remembers he pulled out his IVs and wanted to leave hospital. Currently denying symptoms except confusion. Denies CP, SOB, rash, abd pain, n/v /c/d. Objective Active Medications: Acetaminophen (Tylenol Tab*) 650 mg PO Q4H PRN PRN Reason: FEVER/PAIN Last Admin: 04/09/19 04:18 Dose: 650 mg Amlodipine Besylate (Norvasc Tab*) 2.5 mg PO DAILY [facility] Last Admin: 04/09/19 08:17 Dose: 2.5 mg Atorvastatin Calcium (Lipitor*) 10 mg PO BEDTIME [facility] Atovaquone (Mepron*) 750 mg PO BID [facility] Diltiazem HCl (Cardizem Cd Cap*) 120 mg PO DAILY [facility] Last Admin: 04/09/19 08:17 Dose: 120 mg Enoxaparin Sodium (Lovenox(*)) 40 mg SUBCUT BEDTIME [facility] Doxycycline Hyclate 100 mg/ (Sodium Chloride) 250 mls @ 250 mls/hr IVPB Q12H [facility] Last Admin: 04/09/19 10:40 Dose: 250 mls/hr Azithromycin (Zithromax 500 Mg/250 Ml) 500 mg in 250 mls @ 250 mls/hr IVPB Q24H [facility] Last Admin: 04/09/19 15:30 Dose: 250 mls/hr Levothyroxine Sodium (Synthroid Tab*) 150 mcg PO EVERY OTHER DAY@0600 [facility] Last Admin: 04/09/19 05:54 Dose: 150 mcg Levothyroxine Sodium (Synthroid Tab*) 175 mcg PO EVERY OTHER DAY@0600 [facility] Losartan Potassium (Cozaar Tab*) 50 mg PO DAILY [facility] Last Admin: 04/09/19 08:19 Dose: 50 mg Mometasone Furoate/Formoterol Fumar (Dulera 100/5 Mdi*) 2 puff INH BID [facility] Last Admin: 04/09/19 07:15 Dose: 2 puff Nf* (Cyanocobalamin (Vitamin B-12) [ Vitamin B-12] 100 Mcg) 100 mcg PO DAILY [facility] Last Admin: 04/09/19 08:23 Dose: Not Given Tamsulosin HCl (Flomax Cap*) 0.4 mg PO DAILY [facility] Last Admin: 04/09/19 08:17 Dose: 0.4 mg Oxygen Devices in Use Now: None Appearance: anxious appearing man in NAD; alert and interactive Eyes: No Scleral Icterus Ears/Nose/Mouth/Throat: Clear Oropharnyx, Mucous Membranes Moist Neck: NL Appearance and Movements; NL JVP Respiratory: Symmetrical Chest Expansion and Respiratory Effort Cardiovascular: NL Sounds; No Murmurs; No JVD, RRR Abdominal: NL Sounds; No Tenderness; No Distention, No Hepatosplenomegaly Extremities: No Edema, - - no joint tenderness Skin: No Rash or Ulcers Neurological: - - knows March 2019; thinks we are in an apartment; motor and sensation grossly intact Result Diagrams: 04/09/19 05:41 04/09/19 05:41 Assess/Plan/Problems-Billing Assessment: 78M with HTN, hypothyroid, NORA, asthma, 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 - Patient Problems (1) Parasite infection Comment: Likely tick-borne infection. - f/u remaining infectious labs - appreciate ID recs - cont doxy, azithro, atovaquone (2) Hypertension Comment: cont home dilt, losartan, amlo (3) Hypothyroid Comment: TSH at goal. Cont home regimen. (4) BPH (benign prostatic hyperplasia) Comment: cont tamsulosin (5) DVT prophylaxis Comment: enoxaparin
[2019-04-09] MEDS: Atovaquone* 750 MG/5 ML UDC PO SCH ×2 (17:38→20:51)
[2019-04-09] MEDS ORDERED: Ketorolac INJ* 30 MG/ML 1 ML VIAL IV PUSH ONE (20:00)
--- NOTE | 2019-04-09 20:06 | CONS ---
CONSULTATION REPORT: DATE OF CONSULT: 04/09/19 PRIMARY CARE PROVIDER: Dr. Alexus Spence. PHYSICIAN REQUESTING CONSULTATION: Dr. Jennifer Adan. CONSULTING SERVICE: Infectious disease. PROVIDER: Boom Schwab NP. MY ATTENDING PHYSICIAN: Dr. Hussein Miller.* (DICTATED BY BOOM SCHWAB NP) REASON FOR CONSULTATION: Parasites seen in blood smear. IMPRESSION: 1. Fever with transaminitis, leukopenia, thrombocytopenia and parasites seen on blood smear. The patient continues to be febrile, temperature at 3 o'clock this morning at 101.9. He denies any history of insect or tick bites or removal of ticks recently, but he does spend a lot of time outdoors gardening and fishing. He had a chest x-ray completed at Urgent Care on 04/07/19 showing no active cardiopulmonary disease. His urinalysis is unremarkable. In the setting of fever, leukopenia, transaminitis, and thrombocytopenia, suspect this likely represents a tick borne illness. I discussed the results of the parasite blood smear with microbiology and they report that the parasites are seen in the red blood cells. 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 Lyme serology is pending. 2. Transaminitis. 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 Hepatitis panel ordered by Hospitalist is pending. 3. Acute kidney injury. Resolved after IV hydration. 4. Obesity. BMI of 30. RECOMMENDATIONS: Recommend continuing doxycycline for now as Lyme serology is still pending and babesiosis is often a coinfection of Lyme. To treat the babesiosis, we will add in atovaquone and azithromycin. Further recommendations will be based on the clinic course. HISTORY OF PRESENT ILLNESS: Mr. Sainz is a 78-year-old male with past medical history significant for hypertension, hyperlipidemia, hypothyroidism, obstructive sleep apnea, asthma, obesity who presented to the emergency room with complaints of fevers. He reported having fevers for a few days with associated chills at home with temperature max of 104.3. He initially is again having fevers on Sunday, about 4 days prior to his presentation to the hospital. He had associated feeling of being disoriented for 1 month with decreased energy and appetite. When he presented to the emergency room, he complained of fatigue, general body aches. He traveled to [place] approximately 7 months ago over the break. He frequently spends a lot of time outside, doing landscaping and trout fishing. He has not seen a tick on him or recently removed any ticks. No one in his home has similar symptoms. He reports a chronic cough that is unchanged over the past 6 months. He also has not noticed any bug or insect bites. Denies any rash. He does report a dermatitis that he treats with topical triamcinolone cream as needed. He denies any outdoor pets. He has indoor cats. While in the emergency room, he had a workup including CBC revealing anemia, a CMP showing increased total bilirubin, AST. Noted to have elevated troponins and elevated CRP. Urinalysis significant for 2+ protein, 2+ blood, positive urobilinogen, and rbc's positive. Additionally, he was noted to have an elevated creatinine. He underwent an ultrasound of the bladder showing an enlarged prostate. Temperature while in the emergency room was 100.5. He received normal saline per sepsis protocol. He was referred to the hospitalist service for admission. While in the hospital, he has continued to have fevers with a temperature max of 101.9. Intermittently, he had been tachycardic with intermittent tachypnea. His elevated creatinine resolved with IV hydration. Bilirubin continues to be elevated this morning. He continues to have transaminitis. He is noted to have leukopenia this morning. Continues to be anemic with his blood count approximately 3 points down from his last baseline in July, at which point his hemoglobin was 13.9. It is now 10.1 this morning. On hematology pathologist's review, he is noted to have microcytic anemia with thrombocytopenia and intracellular parasitic organisms identified. He currently denies fevers or chills. He reports fatigue. He denies shortness of breath. He denies joint pain or muscle pain. He reports an occasional cough that has been chronic for 6 months. Denies any rash, diarrhea, constipation. He denies abdominal pain. He denies urinary symptoms of urgency or dysuria. He reports baseline urinary frequency. He denies any recent travel. PAST MEDICAL HISTORY: 1. Hypertension. 2. Hyperlipidemia. 3. Hypothyroidism. 4. Mild asthma. 5. Obstructive sleep apnea with CPAP use. 6. Obesity. 7. History of West Nile virus. 8. History of Lyme disease. PAST SURGICAL HISTORY: 1. Status post right total knee arthroplasty in 2012. 2. Status post right shoulder surgery in 2011. 3. Status post C4-5 diskectomy in 2004. 4. Status post cystoscopy. MEDICATIONS: Home medications include: 1. Acetaminophen 1000 mg by mouth every 6 hours as needed for pain. 2. Ibuprofen 400 mg by mouth at bedtime. 3. Vitamin B12 at 100 mcg by mouth daily. 4. Viagra 100 mg by mouth daily as needed for erectile dysfunction. 5. Simvastatin 20 mg by mouth daily. 6. Losartan 50 mg by mouth daily. 7. Diltiazem 120 mg by mouth daily. 8. Amlodipine 2.5 mg by mouth daily. 9. Tamsulosin 0.4 mg by mouth daily. 10. Levothyroxine 115 mcg every other day with 175 mcg on the opposite days. 11. Advair Diskus 100/50 one puff inhalation twice daily. Hospital Medications: 1. Acetaminophen 650 mg by mouth every 4 hours as needed for pain or fever. 2. Amlodipine 2.5 mg by mouth daily. 3. Atorvastatin 10 mg by mouth daily. 4. Diltiazem CD 120 mg by mouth daily. 5. Doxycycline 100 mg IV every 12 hours. 6. Lovenox 40 mg subcutaneous at bedtime. 7. Levothyroxine 150 mcg by mouth every other day alternating with 175 mcg by mouth every other day. 8. Losartan 50 mg by mouth daily. 9. Dulera 100/5 two puffs inhalation twice daily. 10. Vitamin B12 at 100 mcg by mouth daily. 11. Tamsulosin 0.4 mg by mouth daily. ALLERGIES: No known drug allergies. FAMILY HISTORY: Great aunt and uncle with a history of coronary artery disease. Paternal grandmother with a history of diabetes. No family history of cancer. No family history of recurrent infections. SOCIAL HISTORY: He reports drinking 1 beer daily. He is a former smoker; he quit smoking in 1971. Prior to that, he was a 5-ovlt-r-day smoker for 15 years. He denies recreational drug use. REVIEW OF SYSTEMS: A 10-point review of systems was performed. All the pertinent positives and negatives are mentioned in the history of present illness. The remaining review of systems is negative. PHYSICAL EXAMINATION: Vital Signs: Temperature 100.9, heart rate 98, respiratory rate 18, O2 sat 98% on room air, blood pressure 160/69. General Appearance: Alert, pleasant, appears to be in no acute distress. Head: Normocephalic, atraumatic. ENT: Pupils equal and reactive to light. Extraocular movements are intact. No subconjunctival hemorrhage. Mucous membranes are moist. Neck: Supple. No lymphadenopathy noted. Neurological: Cranial nerves II through XII are grossly intact. Alert and oriented to person and place, some confusion. Cardiovascular: Regular rate and rhythm. S1, S2 present. No murmurs, rubs, or gallops heard. Respiratory: No accessory muscle use. Lungs are clear to auscultation, bilateral. Abdomen: Soft, nontender, nondistended. Bowel sounds present x4. Extremities: No lower extremity edema. Musculoskeletal: No clubbing or cyanosis noted. The patient exhibits good strength in all extremities. He has no tenderness with palpation of bilateral wrists, elbows, shoulders, ankles, knees, or hips. He has full range of motion in all of these joints. Psychological: Calm and cooperative. Skin: No rashes or abnormalities seen. DIAGNOSTIC STUDIES/LAB DATA: Sodium 132, potassium 4.1, chloride 105, CO2 of 21 , BUN 6, creatinine is 1.11, glucose is 126. White blood cell count 3.3, hemoglobin 10.1, hematocrit 29, platelet count 56. ESR 93. CRP 232.22. Total bilirubin 1.6, AST 78, ALT 61. Blood parasite screen positive for parasites. Please see impression and recommendations outlined above. Thank you for asking us to see Mr. Sainz in consultation. The plan has been discussed with Dr. Jennifer Adan. Case has been reviewed with my attending, Dr. Hussein Miller, who agrees with the plan of care. Reviewed by SHANELLE CHAPMAN 04/14/19 [id number]/[facility] #: [id number] SANDIE
[2019-04-09] MEDS: Atorvastatin* 10 MG TAB PO SCH (20:50)
[2019-04-09] MEDS: Enoxaparin(*) 40 MG/0.4 ML SYR SUBCUT SCH (20:52)
[2019-04-10] MEDS: Acetaminophen TAB* 325 MG PO PRN ×4 (03:41→22:33)
[2019-04-10] MEDS: Levothyroxine TAB* 175 MCG TAB PO SCH (05:18)
[2019-04-10 06:00] LABS: Hematocrit 27 % (42-52); Hemoglobin 9.5 g/dL (14.0-18.0); Mean Corpuscular HGB Conc 35 g/dL (31-36); Mean Corpuscular Hemoglobin 29 pg (27-31); Mean Corpuscular Volume 84 fL (80-94); Mean Platelet Volume 8.4 fL (7.4-10.4); Platelet Count 55 10^3/uL (150-450); Red Blood Count 3.28 10^6 /uL (4.18-5.48); Red Cell Distribution Width 15 % (10-15); White Blood Count 3.2 10^3/uL (3.5-10.8)
[2019-04-10 06:06] LABS: BUN/Creatinine Ratio 20.6 (8-20); EGFR African American 85.7 (>60); EGFR Non-African American 70.8 (>60); Potassium 3.7 mmol/L (3.5-5.0)
[2019-04-10] MEDS: Mometasone/Formoter 100/5 MDI INH SCH ×2 (07:19→20:44)
[2019-04-10] MEDS: Losartan TAB* 25 MG PO SCH (09:02)
[2019-04-10] MEDS: Diltiazem CD CAP* 120 MG PO SCH (09:02)
[2019-04-10] MEDS: amLODIPine TAB* 5 MG PO SCH (09:03)
[2019-04-10] MEDS: Tamsulosin CAP* 0.4 MG PO SCH (09:04)
[2019-04-10] MEDS: Atovaquone* 750 MG/5 ML UDC PO SCH ×2 (09:04→22:34)
[2019-04-10] MEDS: CYANOCOBALAMIN 100 MCG PO SCH (09:04)
[2019-04-10] MEDS: DOXYcycline IV* 100 MG in NS 0.9% 250 ML* 250 ML IVPB SCH ×2 (09:09→22:37)
--- NOTE | 2019-04-10 10:08 | PN ---
Progress Note - Progress Note Date of Service: 04/10/19 SOAP: Subjective: CC: fever HPI: 78 year old man with a week of fever, myalgia, malaise; no fever overnight. Feels his thought process is improved today. Appetite increased a little. No rash or diarrhea. Objective: Vital Signs Temp 36.3 C 04/10/19 07:23 Pulse 78 04/10/19 07:23 Resp 16 04/10/19 07:23 BP 133/71 04/10/19 07:23 Pulse Ox 100 04/10/19 07:23 Intake & Output 04/09/19 04/10/19 04/10/19 18:59 06:59 18:59 Intake Total 1264 150 Balance 1264 150 Intake: IV Fluids 1014 IVPB 250 Oral 0 150 Other: # Bowel Movements 0 # Voids 3 Gen:awake, no distress Neuro: Ox3 HEENT: no thrush Heart:RRR no murmur Lungs:CTA BL Abd:+BS NTND soft Skin: no rash Laboratory Results - last 24 hr 04/08/19 04/08/19 04/09/19 17:09 17:09 05:41 WBC RBC Hgb Hct MCV MCH MCHC RDW Plt Count MPV Smear Path Review ESR 93 H Hem Pathologist Commnt Sodium Potassium Chloride Carbon Dioxide Anion Gap BUN Creatinine Est GFR ( Amer) Est GFR (Non-Af Amer) BUN/Creatinine Ratio Glucose Calcium Magnesium Lyme Total Antibody Positive A Bld Parasites Quantity Not Reportable Blood Parasites ID Not Reportable 04/10/19 04/10/19 05:43 05:43 WBC 3.2 L RBC 3.28 L Hgb 9.5 L Hct 27 L MCV 84 MCH 29 MCHC 35 RDW 15 Plt Count 55 L MPV 8.4 Smear Path Review ESR Hem Pathologist Commnt Sodium 132 L Potassium 3.7 Chloride 105 Carbon Dioxide 22 Anion Gap 5 BUN 21 Creatinine 1.02 Est GFR ( Amer) 85.7 Est GFR (Non-Af Amer) 70.8 BUN/Creatinine Ratio 20.6 H Glucose 126 H Calcium 8.0 L Magnesium 2.0 Lyme Total Antibody Bld Parasites Quantity Blood Parasites ID Assessment: 1. 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 Also leukopenia so Anaplasma coinfection a consideration. Lyme EIA pos, WB pending 2. Transaminitis, due to #1 Plan: 1. Continue Azithro 500 mg IV daily, mepron 750 mg PO BID, doxycycline 100 mg IV twice daily; Tick PCR panel and Lyme WB pending for confirmation. 35 minutes floor time >50% face to face in counseling with patient and and 2 sons by phone re: diagnosis and prognosis
[2019-04-10] MEDS: Azithromycin 500 mg/250 ml NS 500 MG/250 ML BAG IVPB SCH (14:47)
[2019-04-10] MEDS ORDERED: GuaiFENesin DM sugar free* 5 ML UDC PO PRN (17:44)
--- NOTE | 2019-04-10 20:54 | PN ---
Subjective Date of Service: 04/10/19 Interval History: Pt still with chills but no longer febrile. Reporting nonproductive cough. Confusion has improved. Objective Active Medications: Acetaminophen (Tylenol Tab*) 650 mg PO Q4H PRN PRN Reason: FEVER/PAIN Last Admin: 04/10/19 17:16 Dose: 650 mg Amlodipine Besylate (Norvasc Tab*) 2.5 mg PO DAILY [facility] Last Admin: 04/10/19 09:03 Dose: 2.5 mg Atorvastatin Calcium (Lipitor*) 10 mg PO BEDTIME [facility] Last Admin: 04/09/19 20:50 Dose: 10 mg Atovaquone (Mepron*) 750 mg PO BID [facility] Last Admin: 04/10/19 09:04 Dose: 750 mg Diltiazem HCl (Cardizem Cd Cap*) 120 mg PO DAILY [facility] Last Admin: 04/10/19 09:02 Dose: 120 mg Enoxaparin Sodium (Lovenox(*)) 40 mg SUBCUT BEDTIME [facility] Last Admin: 04/09/19 20:52 Dose: 40 mg Guaifenesin/Dextromethorphan (Robitussin Dm Sugar Free*) 10 ml PO Q6H PRN PRN Reason: COUGH Doxycycline Hyclate 100 mg/ (Sodium Chloride) 250 mls @ 250 mls/hr IVPB Q12H [facility] Last Admin: 04/10/19 09:09 Dose: 250 mls/hr Azithromycin (Zithromax 500 Mg/250 Ml) 500 mg in 250 mls @ 250 mls/hr IVPB Q24H [facility] Last Admin: 04/10/19 14:47 Dose: 250 mls/hr Levothyroxine Sodium (Synthroid Tab*) 150 mcg PO EVERY OTHER DAY@0600 [facility] Last Admin: 04/09/19 05:54 Dose: 150 mcg Levothyroxine Sodium (Synthroid Tab*) 175 mcg PO EVERY OTHER DAY@0600 [facility] Last Admin: 04/10/19 05:18 Dose: 175 mcg Losartan Potassium (Cozaar Tab*) 50 mg PO DAILY [facility] Last Admin: 04/10/19 09:02 Dose: 50 mg Mometasone Furoate/Formoterol Fumar (Dulera 100/5 Mdi*) 2 puff INH BID [facility] Last Admin: 04/10/19 20:44 Dose: Not Given Nf* (Cyanocobalamin (Vitamin B-12) [ Vitamin B-12] 100 Mcg) 100 mcg PO DAILY [facility] Last Admin: 04/10/19 09:04 Dose: Not Given Tamsulosin HCl (Flomax Cap*) 0.4 mg PO DAILY [facility] Last Admin: 04/10/19 09:04 Dose: 0.4 mg Vital Signs - 8 hr 04/10/19 15:18 Temperature 98.6 F Pulse Rate 89 Respiratory 16 Rate Blood Pressure 105/51 (mmHg) O2 Sat by Pulse 96 Oximetry Oxygen Devices in Use Now: None Appearance: well appearing but also with chills, occasionally tearful when discussing history Eyes: No Scleral Icterus Ears/Nose/Mouth/Throat: Clear Oropharnyx, Mucous Membranes Moist Neck: NL Appearance and Movements; NL JVP Respiratory: Symmetrical Chest Expansion and Respiratory Effort, Clear to Auscultation Cardiovascular: RRR Abdominal: NL Sounds; No Tenderness; No Distention, No Hepatosplenomegaly Extremities: No Edema Skin: No Rash or Ulcers Neurological: - - knows and location but no longer remembers date ( yesterday didn't know location) Result Diagrams: 04/10/19 05:43 04/10/19 05:43 Assess/Plan/Problems-Billing Assessment: 78M with HTN, hypothyroid, NORA, asthma, 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 - Patient Problems (1) Parasite infection Comment: Likely tick-borne infection. - f/u remaining infectious labs - appreciate ID recs - cont doxy, azithro, atovaquone (2) Hypertension Comment: cont home dilt, losartan, amlo (3) Hypothyroid Comment: TSH at goal. Cont home regimen. (4) BPH (benign prostatic hyperplasia) Comment: cont tamsulosin (5) DVT prophylaxis Comment: enoxaparin
[2019-04-10] MEDS ORDERED: Linezolid TAB* 600 MG PO SCH (22:00)
[2019-04-10] MEDS ORDERED: Ketorolac INJ* 30 MG/ML 1 ML VIAL IV PUSH ONE (22:25)
[2019-04-10] MEDS: Atorvastatin* 10 MG TAB PO SCH (22:33)
[2019-04-10] MEDS: Enoxaparin(*) 40 MG/0.4 ML SYR SUBCUT SCH (22:35)
[2019-04-11 00:33] LABS: Spotted Fever Group IgG AB <1:64 (<1:64); Spotted Fever Group IgM AB <1:64 (<1:64)
[2019-04-11] MEDS: Acetaminophen TAB* 325 MG PO PRN ×3 (04:07→21:47)
[2019-04-11] MEDS: Levothyroxine TAB* 150 MCG TAB PO SCH (05:18)
[2019-04-11 06:44] LABS: Hematocrit 27 % (42-52); Hemoglobin 9.4 g/dL (14.0-18.0); Mean Corpuscular HGB Conc 35 g/dL (31-36); Mean Corpuscular Hemoglobin 30 pg (27-31); Mean Corpuscular Volume 84 fL (80-94); Mean Platelet Volume 9.1 fL (7.4-10.4); Platelet Count 55 10^3/uL (150-450); Red Cell Distribution Width 15 % (10-15); White Blood Count 3.3 10^3/uL (3.5-10.8)
[2019-04-11 06:56] LABS: Albumin 2.6 g/dL (3.2-5.2); Albumin/Globulin Ratio 0.9 (1-3); BUN/Creatinine Ratio 23.5 (8-20); Calcium 7.9 mg/dL (8.6-10.3); EGFR African American 89.7 (>60); EGFR Non-African American 74.2 (>60); Potassium 3.7 mmol/L (3.5-5.0); Total Bilirubin 1.2 mg/dL (0.2-1.0); Total Protein 5.6 g/dL (6.4-8.9)
--- NOTE | 2019-04-11 08:42 | PN ---
Subjective Date of Service: 04/11/19 Interval History: Last fever before midnight - 102.8 F. Patient mildly confused again this morning - asking about why he needs surgery. Easily redirected and then answering questions appropriately. States that his chills are better, people are treating him well, and that the bed is comfortable, however would really like to leave the hospital because he has not been apart from his in 55 years and he is having a lot of separation anxiety. Objective Active Medications: Acetaminophen (Tylenol Tab*) 650 mg PO Q4H PRN PRN Reason: FEVER/PAIN Last Admin: 04/11/19 04:07 Dose: 650 mg Amlodipine Besylate (Norvasc Tab*) 2.5 mg PO DAILY [facility] Last Admin: 04/10/19 09:03 Dose: 2.5 mg Atorvastatin Calcium (Lipitor*) 10 mg PO BEDTIME [facility] Last Admin: 04/10/19 22:33 Dose: 10 mg Atovaquone (Mepron*) 750 mg PO BID [facility] Last Admin: 04/10/19 22:34 Dose: 750 mg Diltiazem HCl (Cardizem Cd Cap*) 120 mg PO DAILY [facility] Last Admin: 04/10/19 09:02 Dose: 120 mg Enoxaparin Sodium (Lovenox(*)) 40 mg SUBCUT BEDTIME [facility] Last Admin: 04/10/19 22:35 Dose: 40 mg Guaifenesin/Dextromethorphan (Robitussin Dm Sugar Free*) 10 ml PO Q6H PRN PRN Reason: COUGH Doxycycline Hyclate 100 mg/ (Sodium Chloride) 250 mls @ 250 mls/hr IVPB Q12H [facility] Last Admin: 04/10/19 22:37 Dose: 250 mls/hr Azithromycin (Zithromax 500 Mg/250 Ml) 500 mg in 250 mls @ 250 mls/hr IVPB Q24H [facility] Last Admin: 04/10/19 14:47 Dose: 250 mls/hr Levothyroxine Sodium (Synthroid Tab*) 150 mcg PO EVERY OTHER DAY@0600 [facility] Last Admin: 04/11/19 05:18 Dose: 150 mcg Levothyroxine Sodium (Synthroid Tab*) 175 mcg PO EVERY OTHER DAY@0600 [facility] Last Admin: 04/10/19 05:18 Dose: 175 mcg Losartan Potassium (Cozaar Tab*) 50 mg PO DAILY [facility] Last Admin: 04/10/19 09:02 Dose: 50 mg Mometasone Furoate/Formoterol Fumar (Dulera 100/5 Mdi*) 2 puff INH BID [facility] Last Admin: 04/10/19 20:44 Dose: Not Given Nf* (Cyanocobalamin (Vitamin B-12) [ Vitamin B-12] 100 Mcg) 100 mcg PO DAILY [facility] Last Admin: 04/10/19 09:04 Dose: Not Given Tamsulosin HCl (Flomax Cap*) 0.4 mg PO DAILY [facility] Last Admin: 04/10/19 09:04 Dose: 0.4 mg Vital Signs - 8 hr 04/11/19 04/11/19 04/11/19 00:46 02:08 03:35 Temperature 98.4 F 97.4 F 97.7 F Pulse Rate 63 77 Respiratory 18 16 Rate Blood Pressure 113/50 126/65 (mmHg) O2 Sat by Pulse 97 98 Oximetry 04/11/19 04/11/19 04/11/19 04:08 05:12 08:06 Temperature 97.8 F 97.7 F 99.4 F Pulse Rate 68 Respiratory 20 Rate Blood Pressure 140/57 (mmHg) O2 Sat by Pulse 96 Oximetry Oxygen Devices in Use Now: None Appearance: anxious appearing man, occasionally tearful; in NAD, alert and interactive Eyes: No Scleral Icterus Ears/Nose/Mouth/Throat: Clear Oropharnyx, Mucous Membranes Moist Neck: NL Appearance and Movements; NL JVP, Trachea Midline Respiratory: Symmetrical Chest Expansion and Respiratory Effort, Clear to Auscultation Cardiovascular: NL Sounds; No Murmurs; No JVD, RRR Abdominal: NL Sounds; No Tenderness; No Distention, No Hepatosplenomegaly Extremities: No Edema Skin: No Rash or Ulcers Neurological: - - AOx2, doesn't know date Result Diagrams: 04/11/19 06:18 04/11/19 06:18 Assess/Plan/Problems-Billing Assessment: 78M with HTN, hypothyroid, NORA, asthma, 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 - Patient Problems (1) Parasite infection Comment: Likely tick-borne infection. - f/u remaining infectious labs - appreciate ID recs - cont daiana, osielithro, atovaquone (2) Hypertension Comment: cont home dilt, losartan, amlo (3) Hypothyroid Comment: TSH at goal. Cont home regimen. (4) BPH (benign prostatic hyperplasia) Comment: cont tamsulosin (5) DVT prophylaxis Comment: enoxaparin
[2019-04-11] MEDS: Mometasone/Formoter 100/5 MDI INH SCH ×2 (09:09→19:43)
[2019-04-11] MEDS: Diltiazem CD CAP* 120 MG PO SCH (10:01)
[2019-04-11] MEDS: Tamsulosin CAP* 0.4 MG PO SCH (10:01)
[2019-04-11] MEDS: Losartan TAB* 25 MG PO SCH (10:01)
[2019-04-11] MEDS: amLODIPine TAB* 5 MG PO SCH (10:02)
[2019-04-11] MEDS: Atovaquone* 750 MG/5 ML UDC PO SCH ×2 (10:02→21:29)
[2019-04-11] MEDS: CYANOCOBALAMIN 100 MCG PO SCH (10:04)
[2019-04-11] MEDS: DOXYcycline IV* 100 MG in NS 0.9% 250 ML* 250 ML IVPB SCH ×2 (10:08→21:30)
[2019-04-11] MEDS: Azithromycin 500 mg/250 ml NS 500 MG/250 ML BAG IVPB SCH (13:31)
[2019-04-11 17:27] LABS: Anaplasma phagocytophilum Negative (Negative); Ehrlichia chaffeensis Negative (Negative); Ehrlichia ewingii/canis Negative (Negative); Ehrlichia muris eauclairensis Negative (Negative)
[2019-04-11 19:46] LABS: Anaplasma phagocytophilum Negative (Negative); B. miyamotoi PCR, B Negative (Negative); Babesia divergens/MO-1 Negative (Negative); Babesia ducani Negative (Negative); Ehrlichia chaffeensis Negative (Negative); Ehrlichia ewingii/canis Negative (Negative); Ehrlichia muris eauclairensis Negative (Negative)
[2019-04-11] MEDS: Atorvastatin* 10 MG TAB PO SCH (21:29)
[2019-04-11] MEDS: Enoxaparin(*) 40 MG/0.4 ML SYR SUBCUT SCH (21:30)
[2019-04-12] MEDS: Levothyroxine TAB* 175 MCG TAB PO SCH (06:22)
[2019-04-12] MEDS: Mometasone/Formoter 100/5 MDI INH SCH ×2 (08:19→20:02)
[2019-04-12] MEDS: Losartan TAB* 25 MG PO SCH (10:02)
[2019-04-12] MEDS: Tamsulosin CAP* 0.4 MG PO SCH (10:03)
[2019-04-12] MEDS: amLODIPine TAB* 5 MG PO SCH (10:03)
[2019-04-12] MEDS: CYANOCOBALAMIN 100 MCG PO SCH (10:04)
[2019-04-12] MEDS: Diltiazem CD CAP* 120 MG PO SCH (10:04)
[2019-04-12] MEDS: Atovaquone* 750 MG/5 ML UDC PO SCH ×2 (10:04→22:08)
[2019-04-12] MEDS: DOXYcycline IV* 100 MG in NS 0.9% 250 ML* 250 ML IVPB SCH ×2 (10:05→22:05)
[2019-04-12 11:39] LABS: Hematocrit 26 % (42-52); Hemoglobin 8.8 g/dL (14.0-18.0); Mean Corpuscular HGB Conc 34 g/dL (31-36); Mean Corpuscular Hemoglobin 29 pg (27-31); Mean Corpuscular Volume 84 fL (80-94); Platelet Count 66 10^3/uL (150-450); Red Blood Count 3.08 10^6 /uL (4.18-5.48); Red Cell Distribution Width 15 % (10-15); White Blood Count 3.4 10^3/uL (3.5-10.8)
[2019-04-12 11:48] LABS: Albumin 2.6 g/dL (3.2-5.2); Potassium 3.7 mmol/L (3.5-5.0)
[2019-04-12 11:54] LABS: BUN/Creatinine Ratio 20.5 (8-20); EGFR African American 108.7 (>60); EGFR Non-African American 89.8 (>60); Globulin 2.6 g/dL (2-4); Total Protein 5.2 g/dL (6.4-8.9)
[2019-04-12 12:20] LABS: ABS Lymphocytes 0.8 10^3/ul (1.0-4.8); ABS Monocytes 0.5 10^3/ul (0-0.8); ABS Neutrophils 2.1 10^3/ul (1.5-7.7); Eosinophil % 0.4 %; Lymphocyte % 23.4 %; Nucleated Red Blood Cells % 0.3
[2019-04-12] MEDS: Azithromycin 500 mg/250 ml NS 500 MG/250 ML BAG IVPB SCH (14:11)
--- NOTE | 2019-04-12 18:16 | PN ---
Subjective Date of Service: 04/12/19 Interval History: Fever overnight to 102. Chills much better today. Parasite smear on 04/09 was qualitative only. Will order send out for quantitative smear to know percent of cells infected. Patient again asking to leave today, saying he is "getting out of here." Easily re-directable. Agreed to allow patient to go outside when arrives. Understand how dangerous his infection is and need for IV antibiotics at this time. Objective Active Medications: Acetaminophen (Tylenol Tab*) 650 mg PO Q4H PRN PRN Reason: FEVER/PAIN Last Admin: 04/11/19 21:47 Dose: 650 mg Amlodipine Besylate (Norvasc Tab*) 2.5 mg PO DAILY [facility] Last Admin: 04/12/19 10:03 Dose: 2.5 mg Atorvastatin Calcium (Lipitor*) 10 mg PO BEDTIME [facility] Last Admin: 04/11/19 21:29 Dose: 10 mg Atovaquone (Mepron*) 750 mg PO BID [facility] Last Admin: 04/12/19 10:04 Dose: 750 mg Diltiazem HCl (Cardizem Cd Cap*) 120 mg PO DAILY [facility] Last Admin: 04/12/19 10:04 Dose: 120 mg Enoxaparin Sodium (Lovenox(*)) 40 mg SUBCUT BEDTIME [facility] Last Admin: 04/11/19 21:30 Dose: 40 mg Guaifenesin/Dextromethorphan (Robitussin Dm Sugar Free*) 10 ml PO Q6H PRN PRN Reason: COUGH Doxycycline Hyclate 100 mg/ (Sodium Chloride) 250 mls @ 250 mls/hr IVPB Q12H [facility] Last Admin: 04/12/19 10:05 Dose: 250 mls/hr Azithromycin (Zithromax 500 Mg/250 Ml) 500 mg in 250 mls @ 250 mls/hr IVPB Q24H [facility] Last Admin: 04/12/19 14:11 Dose: 250 mls/hr Levothyroxine Sodium (Synthroid Tab*) 150 mcg PO EVERY OTHER DAY@0600 [facility] Last Admin: 04/11/19 05:18 Dose: 150 mcg Levothyroxine Sodium (Synthroid Tab*) 175 mcg PO EVERY OTHER DAY@0600 [facility] Last Admin: 04/12/19 06:22 Dose: 175 mcg Losartan Potassium (Cozaar Tab*) 50 mg PO DAILY [facility] Last Admin: 04/12/19 10:02 Dose: 50 mg Mometasone Furoate/Formoterol Fumar (Dulera 100/5 Mdi*) 2 puff INH BID [facility] Last Admin: 04/12/19 08:19 Dose: 2 puff Nf* (Cyanocobalamin (Vitamin B-12) [ Vitamin B-12] 100 Mcg) 100 mcg PO DAILY [facility] Last Admin: 04/12/19 10:04 Dose: Not Given Tamsulosin HCl (Flomax Cap*) 0.4 mg PO DAILY [facility] Last Admin: 04/12/19 10:03 Dose: 0.4 mg Vital Signs - 8 hr 04/12/19 04/12/19 10:21 11:13 Temperature 98.6 F Pulse Rate 84 Respiratory 16 20 Rate Blood Pressure 131/60 (mmHg) O2 Sat by Pulse 98 Oximetry Appearance: well appearing, initially upset but then very pleasant Eyes: No Scleral Icterus Ears/Nose/Mouth/Throat: Clear Oropharnyx, Mucous Membranes Moist Neck: Trachea Midline, No Thyroid Enlargement, Masses Respiratory: Symmetrical Chest Expansion and Respiratory Effort, Clear to Auscultation Cardiovascular: NL Sounds; No Murmurs; No JVD, RRR Abdominal: NL Sounds; No Tenderness; No Distention, No Hepatosplenomegaly Extremities: No Edema Skin: No Rash or Ulcers Neurological: - - 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 - f/u quantitative parasite smear - appreciate ID recs - cont doxy and azithro IV, atovaquone PO (2) Hypertension Comment: cont home dilt, losartan, amlo (3) Hypothyroid Comment: TSH at goal. Cont home regimen. (4) BPH (benign prostatic hyperplasia) Comment: cont tamsulosin (5) Asthma Comment: cont home Dulera (6) DVT prophylaxis Comment: enoxaparin
[2019-04-12] MEDS: Enoxaparin(*) 40 MG/0.4 ML SYR SUBCUT SCH (22:05)
[2019-04-12] MEDS: Atorvastatin* 10 MG TAB PO SCH (22:05)
[2019-04-12] MEDS: Melatonin 3 MG TAB PO PRN (22:38)
[2019-04-13] MEDS: Levothyroxine TAB* 150 MCG TAB PO SCH (06:18)
[2019-04-13] MEDS ORDERED: Polyethylene Glycol 3350* 17 GM PACKET PO PRN (06:20)
[2019-04-13 07:10] LABS: Hematocrit 27 % (42-52); Hemoglobin 9.2 g/dL (14.0-18.0); Mean Corpuscular HGB Conc 35 g/dL (31-36); Mean Corpuscular Hemoglobin 29 pg (27-31); Mean Corpuscular Volume 84 fL (80-94); Mean Platelet Volume 8.7 fL (7.4-10.4); Platelet Count 82 10^3/uL (150-450); Red Blood Count 3.21 10^6 /uL (4.18-5.48); Red Cell Distribution Width 15 % (10-15); White Blood Count 3.6 10^3/uL (3.5-10.8)
[2019-04-13 07:24] LABS: Albumin 2.8 g/dL (3.2-5.2); Albumin/Globulin Ratio 0.9 (1-3); BUN/Creatinine Ratio 15.9 (8-20); Calcium 8.2 mg/dL (8.6-10.3); EGFR African American 101.6 (>60); Globulin 3.1 g/dL (2-4); Potassium 3.7 mmol/L (3.5-5.0); Total Protein 5.9 g/dL (6.4-8.9)
[2019-04-13] MEDS: Mometasone/Formoter 100/5 MDI INH SCH ×2 (08:32→20:46)
[2019-04-13] MEDS: DOXYcycline IV* 100 MG in NS 0.9% 250 ML* 250 ML IVPB SCH ×2 (09:49→20:11)
[2019-04-13] MEDS: Losartan TAB* 25 MG PO SCH (09:54)
[2019-04-13] MEDS: amLODIPine TAB* 5 MG PO SCH (09:54)
[2019-04-13] MEDS: Atovaquone* 750 MG/5 ML UDC PO SCH ×2 (09:54→20:10)
[2019-04-13] MEDS: Diltiazem CD CAP* 120 MG PO SCH (09:56)
[2019-04-13] MEDS: Tamsulosin CAP* 0.4 MG PO SCH (09:56)
[2019-04-13] MEDS: CYANOCOBALAMIN 100 MCG PO SCH (09:59)
--- NOTE | 2019-04-13 11:51 | PN ---
Subjective Date of Service: 04/13/19 Interval History: Patient states his fever/chills are now resolved. He reports chronic constipation but did have a bowel movement this AM. He denies difficulty breathing, hematuria, dysuria, chest pain, headache, blurred vision. He states he was previously having issues with focus but now feels more focused. Patient's and son report the patient has had short-term memory loss issues for several years now. They believe him to have dementia but he has refused outpatient workup. The endorses that he is at his neurocognitive baseline today. Objective Active Medications: Acetaminophen (Tylenol Tab*) 650 mg PO Q4H PRN PRN Reason: FEVER/PAIN Last Admin: 04/11/19 21:47 Dose: 650 mg Amlodipine Besylate (Norvasc Tab*) 2.5 mg PO DAILY [facility] Last Admin: 04/13/19 09:54 Dose: 2.5 mg Atorvastatin Calcium (Lipitor*) 10 mg PO BEDTIME [facility] Last Admin: 04/12/19 22:05 Dose: 10 mg Atovaquone (Mepron*) 750 mg PO BID [facility] Last Admin: 04/13/19 09:54 Dose: 750 mg Diltiazem HCl (Cardizem Cd Cap*) 120 mg PO DAILY [facility] Last Admin: 04/13/19 09:56 Dose: 120 mg Enoxaparin Sodium (Lovenox(*)) 40 mg SUBCUT BEDTIME [facility] Last Admin: 04/12/19 22:05 Dose: 40 mg Guaifenesin/Dextromethorphan (Robitussin Dm Sugar Free*) 10 ml PO Q6H PRN PRN Reason: COUGH Doxycycline Hyclate 100 mg/ (Sodium Chloride) 250 mls @ 250 mls/hr IVPB Q12H [facility] Last Admin: 04/13/19 09:49 Dose: 250 mls/hr Azithromycin (Zithromax 500 Mg/250 Ml) 500 mg in 250 mls @ 250 mls/hr IVPB Q24H [facility] Last Admin: 04/12/19 14:11 Dose: 250 mls/hr Levothyroxine Sodium (Synthroid Tab*) 150 mcg PO EVERY OTHER DAY@0600 [facility] Last Admin: 04/13/19 06:18 Dose: 150 mcg Levothyroxine Sodium (Synthroid Tab*) 175 mcg PO EVERY OTHER DAY@0600 [facility] Last Admin: 04/12/19 06:22 Dose: 175 mcg Losartan Potassium (Cozaar Tab*) 50 mg PO DAILY [facility] Last Admin: 04/13/19 09:54 Dose: 50 mg Melatonin (Melatonin) 3 mg PO BEDTIME PRN PRN Reason: SLEEP Last Admin: 04/12/19 22:38 Dose: 3 mg Mometasone Furoate/Formoterol Fumar (Dulera 100/5 Mdi*) 2 puff INH BID [facility] Last Admin: 04/13/19 08:32 Dose: 2 puff Nf* (Cyanocobalamin (Vitamin B-12) [ Vitamin B-12] 100 Mcg) 100 mcg PO DAILY [facility] Last Admin: 04/13/19 09:59 Dose: Not Given Pneumococcal Polyvalent Vaccine (Pneumococcal Vac 23-Polyvalent*) 0.5 ml IM .ONCE ONE Stop: 04/14/19 09:01 Polyethylene Glycol/Electrolytes (Miralax*) 17 gm PO DAILY PRN PRN Reason: CONSTIPATION Last Admin: 04/13/19 06:29 Dose: 17 gm Tamsulosin HCl (Flomax Cap*) 0.4 mg PO DAILY [facility] Last Admin: 04/13/19 09:56 Dose: 0.4 mg Vital Signs - 8 hr 04/13/19 04/13/19 04/13/19 04:16 07:15 08:32 Temperature 98 F 98.3 F Pulse Rate 81 75 85 Respiratory 18 18 18 Rate Blood Pressure 150/61 145/69 (mmHg) O2 Sat by Pulse 97 97 96 Oximetry 04/13/19 10:03 Temperature Pulse Rate Respiratory 16 Rate Blood Pressure (mmHg) O2 Sat by Pulse Oximetry Oxygen Devices in Use Now: Nasal Cannula Appearance: WD/WN elderly white male who appears younger than stated age, appearing comfortable and in NAD Eyes: No Scleral Icterus, PERRLA Ears/Nose/Mouth/Throat: Mucous Membranes Moist Neck: NL Appearance and Movements; NL JVP Respiratory: Symmetrical Chest Expansion and Respiratory Effort, Clear to Auscultation Cardiovascular: NL Sounds; No Murmurs; No JVD, RRR Abdominal: No Hepatosplenomegaly, - - abdomen soft, nontender, nondistended Extremities: No Edema, No Clubbing, Cyanosis Skin: No Rash or Ulcers Neurological: Alert and Oriented x 3, NL Muscle Strength and Tone Result Diagrams: 04/13/19 06:24 06/30/19 06:24 Additional Lab and Data: Lab Results 04/08/19 04/08/19 04/08/19 Range/Units 17:09 17:09 17:09 WBC 4.1 (3.5-10.8) 10^3/uL RBC 3.66 L (4.18-5.48) 10^6 /uL Hgb 10.7 L (14.0-18.0) g/dL Hct 31 L (42-52) % MCV 85 (80-94) fL MCH 29 (27-31) pg MCHC 35 (31-36) g/dL RDW 15 (10-15) % Plt Count 64 L (150-450) 10^3/uL MPV 8.7 (7.4-10.4) fL Neut % (Auto) 53.4 % Lymph % (Auto) 22.6 % [place] % (Auto) 23.4 % Eos % (Auto) 0.0 % Baso % (Auto) 0.6 % Absolute Neuts (auto) 2.2 (1.5-7.7) 10^3/ul Absolute Lymphs (auto) 0.9 L (1.0-4.8) 10^3/ul Absolute Monos (auto) 1.0 H (0-0.8) 10^3/ul Absolute Eos (auto) 0.0 (0-0.6) 10^3/ul Absolute Basos (auto) 0.0 (0-0.2) 10^3/ul Absolute Nucleated RBC 0.0 10^3/ul Immature Gran % 1.0 (0-9) % Neutrophils % 58.0 % Band Neutrophils % 1.0 (0-8) % Lymphocytes % 21.0 % Reactive Lymphs % 1.0 (0-6) % Monocytes % 19.0 % Nucleated RBC % 0.1 Normal RBC Morphology Normal (Normal) Hem Pathologist Commnt Pending INR (Anticoag Therapy) 1.36 H (0.82-1.09) APTT 34.4 (26.0-38.0) seconds Sodium 133 L (135-145) mmol/L Potassium 4.2 (3.5-5.0) mmol/L Chloride 103 (101-111) mmol/L Carbon Dioxide 23 (22-32) mmol/L Anion Gap 7 (2-11) mmol/L BUN 27 H (6-24) mg/dL Creatinine 1.41 H (0.67-1.17) mg/dL Est GFR ( Amer) 59.0 (>60) Est GFR (Non-Af Amer) 48.7 (>60) BUN/Creatinine Ratio 19.1 (8-20) Glucose 136 H (70-100) mg/dL Lactic Acid (0.5-2.0) mmol/L Calcium 8.4 L (8.6-10.3) mg/dL Total Bilirubin 1.60 H (0.2-1.0) mg/dL AST 55 H (13-39) U/L ALT 43 (7-52) U/L Alkaline Phosphatase 45 (34-104) U/L Troponin I 0.04 H* (<0.04) ng/mL C-Reactive Protein 232.22 H (<8.01) mg/L Total Protein 6.6 (6.4-8.9) g/dL Albumin 3.2 (3.2-5.2) g/dL Globulin 3.4 (2-4) g/dL Albumin/Globulin Ratio 0.9 L (1-3) Urine Color Urine Appearance Urine pH (5-9) Ur Specific [place] (1.010-1.030) Urine Protein (Negative) Urine Ketones (Negative) Urine Blood (Negative) Urine Nitrate (Negative) Urine Bilirubin (Negative) Urine Urobilinogen (Negative) Ur Leukocyte Esterase (Negative) Urine WBC (Auto) (Absent) Urine RBC (Auto) (Absent) Urine Bacteria (Absent) Urine Glucose (Negative) 04/08/19 04/08/19 04/08/19 Range/Units 17:09 17:24 19:23 WBC (3.5-10.8) 10^3/uL RBC (4.18-5.48) 10^6 /uL Hgb (14.0-18.0) g/dL Hct (42-52) % MCV (80-94) fL MCH (27-31) pg MCHC (31-36) g/dL RDW (10-15) % Plt Count (150-450) 10^3/uL MPV (7.4-10.4) fL Neut % (Auto) % Lymph % (Auto) % [place] % (Auto) % Eos % (Auto) % Baso % (Auto) % Absolute Neuts (auto) (1.5-7.7) 10^3/ul Absolute Lymphs (auto) (1.0-4.8) 10^3/ul Absolute Monos (auto) (0-0.8) 10^3/ul Absolute Eos (auto) (0-0.6) 10^3/ul Absolute Basos (auto) (0-0.2) 10^3/ul Absolute Nucleated RBC 10^3/ul Immature Gran % (0-9) % Neutrophils % % Band Neutrophils % (0-8) % Lymphocytes % % Reactive Lymphs % (0-6) % Monocytes % % Nucleated RBC % Normal RBC Morphology (Normal) Hem Pathologist Commnt INR (Anticoag Therapy) (0.82-1.09) APTT (26.0-38.0) seconds Sodium (135-145) mmol/L Potassium (3.5-5.0) mmol/L Chloride (101-111) mmol/L Carbon Dioxide (22-32) mmol/L Anion Gap (2-11) mmol/L BUN (6-24) mg/dL Creatinine (0.67-1.17) mg/dL Est GFR ( Amer) (>60) Est GFR (Non-Af Amer) (>60) BUN/Creatinine Ratio (8-20) Glucose (70-100) mg/dL Lactic Acid 1.1 (0.5-2.0) mmol/L Calcium (8.6-10.3) mg/dL Total Bilirubin (0.2-1.0) mg/dL AST (13-39) U/L ALT (7-52) U/L Alkaline Phosphatase (34-104) U/L Troponin I 0.04 H* (<0.04) ng/mL C-Reactive Protein (<8.01) mg/L Total Protein (6.4-8.9) g/dL Albumin (3.2-5.2) g/dL Globulin (2-4) g/dL Albumin/Globulin Ratio (1-3) Urine Color [place] Urine Appearance Cloudy Urine pH 5.0 (5-9) Ur Specific [place] 1.028 (1.010-1.030) Urine Protein 2+(100 mg/dl) A (Negative) Urine Ketones Negative (Negative) Urine Blood 2+ A (Negative) Urine Nitrate Negative (Negative) Urine Bilirubin Negative (Negative) Urine Urobilinogen Positive A (Negative) Ur Leukocyte Esterase Negative (Negative) Urine WBC (Auto) Trace(0-5/hpf) (Absent) Urine RBC (Auto) 3+(>10/hpf) A (Absent) Urine Bacteria Absent (Absent) Urine Glucose Negative (Negative) Microbiology and Other Data: Microbiology 04/08/19 22:14 Stool Occult Blood (DOMONIQUE) - Final Stool Assess/Plan/Problems-Billing Assessment: 78M with HTN, hypothyroid, NORA, asthma, 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 SNOMED Code(s): 15353273 Comment: -confirmed via PCR; % parasitemia pending -with moderate anemia, hgb today 9.2 which is minimally improved from 8.8 yesterday -continue atovaquone and azithromycin -pending further input from ID tomorrow and continuing to monitor H&H (2) Lyme disease Code(s): A69.20 - LYME DISEASE, UNSPECIFIED SNOMED Code(s): 18521095 Comment: -confirmed with Western Blot after EIA positive -continue doxycycline IV q12h, length of treatment to be determined by ID, appreciate recs (3) Transaminitis Code(s): R74.0 - NONSPEC ELEV OF LEVELS OF TRANSAMNS & LACTIC ACID DEHYDRGNSE SNOMED Code(s): 638478529 Comment: -secondary to babesia -AST downtrending (99), ALT minimally increased (98) -bilirubin normal today -liver US demonstrates fatty liver (4) Hypertension Code(s): I10 - ESSENTIAL (PRIMARY) HYPERTENSION SNOMED Code(s): 69855137 Comment: -overall normotensive -cont home dilt, losartan, amlodipine (5) Asthma Code(s): J45.909 - UNSPECIFIED ASTHMA, UNCOMPLICATED SNOMED Code(s): 754401477 Comment: -cont home Dulera -no evidence of exacerbation (6) BPH (benign prostatic hyperplasia) Code(s): N40.0 - BENIGN PROSTATIC HYPERPLASIA WITHOUT LOWER URINRY TRACT SYMP SNOMED Code(s): 426367420 Comment: -cont tamsulosin (7) Hypothyroid Code(s): E03.9 - HYPOTHYROIDISM, UNSPECIFIED SNOMED Code(s): 98966545 Comment: -TSH at goal -Cont home synthroid (8) DVT prophylaxis Code(s): Z29.9 - ENCOUNTER FOR PROPHYLACTIC MEASURES, UNSPECIFIED SNOMED Code( s): 290971495 Comment: -cont enoxaparin (9) Full code status Code(s): Z78.9 - OTHER SPECIFIED HEALTH STATUS SNOMED Code(s): 468307537
[2019-04-13] MEDS: Senna TAB PO SCH (12:59)
[2019-04-13] MEDS: Azithromycin 500 mg/250 ml NS 500 MG/250 ML BAG IVPB SCH (14:20)
[2019-04-13] MEDS ORDERED: GuaiFENesin DM* 5 ML UDC PO PRN (14:26)
[2019-04-13] MEDS: Atorvastatin* 10 MG TAB PO SCH (20:10)
[2019-04-13] MEDS: Enoxaparin(*) 40 MG/0.4 ML SYR SUBCUT SCH (20:10)
[2019-04-14] MEDS: Melatonin 3 MG TAB PO PRN ×2 (03:40→22:57)
[2019-04-14] MEDS: Acetaminophen TAB* 325 MG PO PRN ×2 (03:40→22:57)
[2019-04-14] MEDS: Levothyroxine TAB* 175 MCG TAB PO SCH (05:10)
[2019-04-14 06:21] LABS: Hematocrit 26 % (42-52); Hemoglobin 8.9 g/dL (14.0-18.0); Mean Corpuscular HGB Conc 35 g/dL (31-36); Mean Corpuscular Hemoglobin 29 pg (27-31); Mean Corpuscular Volume 84 fL (80-94); Mean Platelet Volume 8.2 fL (7.4-10.4); Platelet Count 114 10^3/uL (150-450); Red Blood Count 3.04 10^6 /uL (4.18-5.48); Red Cell Distribution Width 15 % (10-15); White Blood Count 4.6 10^3/uL (3.5-10.8)
[2019-04-14 06:46] LABS: BUN/Creatinine Ratio 13.9 (8-20); Calcium 8.4 mg/dL (8.6-10.3); EGFR African American 115.1 (>60); EGFR Non-African American 95.1 (>60); Potassium 3.7 mmol/L (3.5-5.0)
[2019-04-14] MEDS: Mometasone/Formoter 100/5 MDI INH SCH ×2 (08:10→19:12)
[2019-04-14 08:43] LABS: ABS Eosinophils 0.1 10^3/ul (0-0.6); ABS Lymphocytes 1.1 10^3/ul (1.0-4.8); ABS Monocytes 0.5 10^3/ul (0-0.8); Eosinophil % 1.3 %; Lymphocyte % 23.2 %
[2019-04-14] MEDS ORDERED: Pneumococcal *Vac Polyvalent 0.5 ML VIAL IM ONE (09:00)
[2019-04-14] MEDS ORDERED: NS 0.9% 250 ML* 250 ML ONE (09:02)
[2019-04-14] MEDS: Tamsulosin CAP* 0.4 MG PO SCH (09:10)
[2019-04-14] MEDS: Losartan TAB* 25 MG PO SCH (09:10)
[2019-04-14] MEDS: Atovaquone* 750 MG/5 ML UDC PO SCH ×2 (09:10→20:30)
[2019-04-14] MEDS: amLODIPine TAB* 5 MG PO SCH (09:11)
[2019-04-14] MEDS: Diltiazem CD CAP* 120 MG PO SCH (09:11)
[2019-04-14] MEDS: DOXYcycline IV* 100 MG in NS 0.9% 250 ML* 250 ML IVPB SCH ×2 (09:15→20:35)
[2019-04-14] MEDS: Senna TAB PO SCH (09:27)
[2019-04-14] MEDS: CYANOCOBALAMIN 100 MCG PO SCH (09:34)
--- NOTE | 2019-04-14 09:42 | PN ---
Progress Note - Progress Note Date of Service: 04/14/19 SOAP: Subjective: CC: Babesiosis HPI: 78 year old man with fever, malaise, encephalopathy due to Babesiosis; no fever rash or diarrhea. Appetite good. No headache or weakness. Objective: Vital Signs Temp 36.6 C 04/14/19 07:00 Pulse 86 04/14/19 08:12 Resp 20 04/14/19 08:12 BP 138/71 04/14/19 07:00 Pulse Ox 98 04/14/19 08:12 Intake & Output 04/13/19 04/14/19 04/14/19 18:59 06:59 18:59 Intake Total 1870 1295 Output Total 100 300 Balance 1770 995 Intake: IV Fluids 560 275 Doxycycline 270 275 azithromycin 290 Oral 1310 1020 Output: Urine 100 300 Other: Estimated Void Medium # Bowel Movements 1 Estimated Stool Amount Large # Voids 1 1 Gen:awake, no distress Neuro alert, Ox2, moves all extremities HEENT: no thrush Heart:RRR no murmur Lungs:CTA BL Abd:+BS NTND soft Skin: no rash Laboratory Results - last 24 hr 04/14/19 04/14/19 06:03 06:03 WBC 4.6 RBC 3.04 L Hgb 8.9 L Hct 26 L MCV 84 MCH 29 MCHC 35 RDW 15 Plt Count 114 L MPV 8.2 Neut % (Auto) 64.9 Lymph % (Auto) 23.2 [place] % (Auto) 10.4 Eos % (Auto) 1.3 Baso % (Auto) 0.2 Absolute Neuts (auto) 3.0 Absolute Lymphs (auto) 1.1 Absolute Monos (auto) 0.5 Absolute Eos (auto) 0.1 Absolute Basos (auto) 0.0 Absolute Nucleated RBC 0.0 Nucleated RBC % 0.0 Sodium 137 Potassium 3.7 Chloride 107 Carbon Dioxide 24 Anion Gap 6 BUN 11 Creatinine 0.79 Est GFR ( Amer) 115.1 Est GFR (Non-Af Amer) 95.1 BUN/Creatinine Ratio 13.9 Glucose 129 H Calcium 8.4 L Assessment: 1. Babesiosis, Hgb stable, Bilirubin decreasing, quantification of parasitemia pending 2. Lyme IgG positive, IgM negative; extensive tick exposure, likely due to past infection 3. Encephalopathy due to infection, persists, improved Plan: 1. continue azithromycin 500 mg IV daily, atovaquone 750 mg PO twice daily; day 5/14, quant pending which can be followed 2. DC doxycycline
--- NOTE | 2019-04-14 09:54 | PN ---
Subjective Date of Service: 04/14/19 Interval History: Patient is more confused and frustrated today. He is upset that is not leaving today, but [place] He denies fever/chills, chest pain, difficulty breathing, abd pain, n/v. Objective Active Medications: Acetaminophen (Tylenol Tab*) 650 mg PO Q4H PRN PRN Reason: FEVER/PAIN Last Admin: 04/14/19 03:40 Dose: 650 mg Amlodipine Besylate (Norvasc Tab*) 2.5 mg PO DAILY [facility] Last Admin: 04/14/19 09:11 Dose: 2.5 mg Atorvastatin Calcium (Lipitor*) 10 mg PO BEDTIME [facility] Last Admin: 04/13/19 20:10 Dose: 10 mg Atovaquone (Mepron*) 750 mg PO BID [facility] Last Admin: 04/14/19 09:10 Dose: 750 mg Diltiazem HCl (Cardizem Cd Cap*) 120 mg PO DAILY [facility] Last Admin: 04/14/19 09:11 Dose: 120 mg Enoxaparin Sodium (Lovenox(*)) 40 mg SUBCUT BEDTIME [facility] Last Admin: 04/13/19 20:10 Dose: 40 mg Guaifenesin/Dextromethorphan (Robitussin Dm*) 10 ml PO Q6H PRN PRN Reason: COUGH Doxycycline Hyclate 100 mg/ (Sodium Chloride) 250 mls @ 250 mls/hr IVPB Q12H [facility] Last Admin: 04/14/19 09:15 Dose: 250 mls/hr Azithromycin (Zithromax 500 Mg/250 Ml) 500 mg in 250 mls @ 250 mls/hr IVPB Q24H [facility] Last Admin: 04/13/19 14:20 Dose: 250 mls/hr Levothyroxine Sodium (Synthroid Tab*) 150 mcg PO EVERY OTHER DAY@0600 [facility] Last Admin: 04/13/19 06:18 Dose: 150 mcg Levothyroxine Sodium (Synthroid Tab*) 175 mcg PO EVERY OTHER DAY@0600 [facility] Last Admin: 04/14/19 05:10 Dose: 175 mcg Losartan Potassium (Cozaar Tab*) 50 mg PO DAILY [facility] Last Admin: 04/14/19 09:10 Dose: 50 mg Melatonin (Melatonin) 3 mg PO BEDTIME PRN PRN Reason: SLEEP Last Admin: 04/14/19 03:40 Dose: 3 mg Mometasone Furoate/Formoterol Fumar (Dulera 100/5 Mdi*) 2 puff INH BID [facility] Last Admin: 04/14/19 08:10 Dose: 2 puff Nf* (Cyanocobalamin (Vitamin B-12) [ Vitamin B-12] 100 Mcg) 100 mcg PO DAILY [facility] Last Admin: 04/14/19 09:34 Dose: Not Given Polyethylene Glycol/Electrolytes (Miralax*) 17 gm PO DAILY PRN PRN Reason: CONSTIPATION Last Admin: 04/13/19 06:29 Dose: 17 gm Senna (Senokot Tab*) 1 tab PO DAILY [facility] Last Admin: 04/14/19 09:27 Dose: Not Given Tamsulosin HCl (Flomax Cap*) 0.4 mg PO DAILY [facility] Last Admin: 04/14/19 09:10 Dose: 0.4 mg Vital Signs - 8 hr 04/14/19 04/14/19 04/14/19 03:08 07:00 07:50 Temperature 98.3 F 97.9 F Pulse Rate 67 86 Respiratory 18 20 20 Rate Blood Pressure 134/64 138/71 (mmHg) O2 Sat by Pulse 96 97 Oximetry 04/14/19 04/14/19 08:00 08:12 Temperature Pulse Rate 86 Respiratory 20 Rate Blood Pressure (mmHg) O2 Sat by Pulse 97 98 Oximetry Oxygen Devices in Use Now: None Appearance: Elderly white male, sitting in hospital chair, appearing in NAD Eyes: No Scleral Icterus, PERRLA Ears/Nose/Mouth/Throat: Mucous Membranes Moist Neck: NL Appearance and Movements; NL JVP Respiratory: Symmetrical Chest Expansion and Respiratory Effort, Clear to Auscultation Cardiovascular: NL Sounds; No Murmurs; No JVD, RRR Abdominal: - - abd soft, nontender/nondistended Extremities: No Edema, No Clubbing, Cyanosis Skin: No Rash or Ulcers Neurological: NL Muscle Strength and Tone, - - Patient is alert, oriented to time and self only Result Diagrams: 04/14/19 14:01 04/14/19 06:03 Additional Lab and Data: Lab Results 04/08/19 04/08/19 04/08/19 Range/Units 17:09 17:09 17:09 WBC 4.1 (3.5-10.8) 10^3/uL RBC 3.66 L (4.18-5.48) 10^6 /uL Hgb 10.7 L (14.0-18.0) g/dL Hct 31 L (42-52) % MCV 85 (80-94) fL MCH 29 (27-31) pg MCHC 35 (31-36) g/dL RDW 15 (10-15) % Plt Count 64 L (150-450) 10^3/uL MPV 8.7 (7.4-10.4) fL Neut % (Auto) 53.4 % Lymph % (Auto) 22.6 % Webb % (Auto) 23.4 % Eos % (Auto) 0.0 % Baso % (Auto) 0.6 % Absolute Neuts (auto) 2.2 (1.5-7.7) 10^3/ul Absolute Lymphs (auto) 0.9 L (1.0-4.8) 10^3/ul Absolute Monos (auto) 1.0 H (0-0.8) 10^3/ul Absolute Eos (auto) 0.0 (0-0.6) 10^3/ul Absolute Basos (auto) 0.0 (0-0.2) 10^3/ul Absolute Nucleated RBC 0.0 10^3/ul Immature Gran % 1.0 (0-9) % Neutrophils % 58.0 % Band Neutrophils % 1.0 (0-8) % Lymphocytes % 21.0 % Reactive Lymphs % 1.0 (0-6) % Monocytes % 19.0 % Nucleated RBC % 0.1 Normal RBC Morphology Normal (Normal) Hem Pathologist Commnt Pending INR (Anticoag Therapy) 1.36 H (0.82-1.09) APTT 34.4 (26.0-38.0) seconds Sodium 133 L (135-145) mmol/L Potassium 4.2 (3.5-5.0) mmol/L Chloride 103 (101-111) mmol/L Carbon Dioxide 23 (22-32) mmol/L Anion Gap 7 (2-11) mmol/L BUN 27 H (6-24) mg/dL Creatinine 1.41 H (0.67-1.17) mg/dL Est GFR ( Amer) 59.0 (>60) Est GFR (Non-Af Amer) 48.7 (>60) BUN/Creatinine Ratio 19.1 (8-20) Glucose 136 H (70-100) mg/dL Lactic Acid (0.5-2.0) mmol/L Calcium 8.4 L (8.6-10.3) mg/dL Total Bilirubin 1.60 H (0.2-1.0) mg/dL AST 55 H (13-39) U/L ALT 43 (7-52) U/L Alkaline Phosphatase 45 (34-104) U/L Troponin I 0.04 H* (<0.04) ng/mL C-Reactive Protein 232.22 H (<8.01) mg/L Total Protein 6.6 (6.4-8.9) g/dL Albumin 3.2 (3.2-5.2) g/dL Globulin 3.4 (2-4) g/dL Albumin/Globulin Ratio 0.9 L (1-3) Urine Color Urine Appearance Urine pH (5-9) Ur Specific [place] (1.010-1.030) Urine Protein (Negative) Urine Ketones (Negative) Urine Blood (Negative) Urine Nitrate (Negative) Urine Bilirubin (Negative) Urine Urobilinogen (Negative) Ur Leukocyte Esterase (Negative) Urine WBC (Auto) (Absent) Urine RBC (Auto) (Absent) Urine Bacteria (Absent) Urine Glucose (Negative) 04/08/19 04/08/19 04/08/19 Range/Units 17:09 17:24 19:23 WBC (3.5-10.8) 10^3/uL RBC (4.18-5.48) 10^6 /uL Hgb (14.0-18.0) g/dL Hct (42-52) % MCV (80-94) fL MCH (27-31) pg MCHC (31-36) g/dL RDW (10-15) % Plt Count (150-450) 10^3/uL MPV (7.4-10.4) fL Neut % (Auto) % Lymph % (Auto) % Webb % (Auto) % Eos % (Auto) % Baso % (Auto) % Absolute Neuts (auto) (1.5-7.7) 10^3/ul Absolute Lymphs (auto) (1.0-4.8) 10^3/ul Absolute Monos (auto) (0-0.8) 10^3/ul Absolute Eos (auto) (0-0.6) 10^3/ul Absolute Basos (auto) (0-0.2) 10^3/ul Absolute Nucleated RBC 10^3/ul Immature Gran % (0-9) % Neutrophils % % Band Neutrophils % (0-8) % Lymphocytes % % Reactive Lymphs % (0-6) % Monocytes % % Nucleated RBC % Normal RBC Morphology (Normal) Hem Pathologist Commnt INR (Anticoag Therapy) (0.82-1.09) APTT (26.0-38.0) seconds Sodium (135-145) mmol/L Potassium (3.5-5.0) mmol/L Chloride (101-111) mmol/L Carbon Dioxide (22-32) mmol/L Anion Gap (2-11) mmol/L BUN (6-24) mg/dL Creatinine (0.67-1.17) mg/dL Est GFR ( Amer) (>60) Est GFR (Non-Af Amer) (>60) BUN/Creatinine Ratio (8-20) Glucose (70-100) mg/dL Lactic Acid 1.1 (0.5-2.0) mmol/L Calcium (8.6-10.3) mg/dL Total Bilirubin (0.2-1.0) mg/dL AST (13-39) U/L ALT (7-52) U/L Alkaline Phosphatase (34-104) U/L Troponin I 0.04 H* (<0.04) ng/mL C-Reactive Protein (<8.01) mg/L Total Protein (6.4-8.9) g/dL Albumin (3.2-5.2) g/dL Globulin (2-4) g/dL Albumin/Globulin Ratio (1-3) Urine Color Shirley Urine Appearance Cloudy Urine pH 5.0 (5-9) Ur Specific [place] 1.028 (1.010-1.030) Urine Protein 2+(100 mg/dl) A (Negative) Urine Ketones Negative (Negative) Urine Blood 2+ A (Negative) Urine Nitrate Negative (Negative) Urine Bilirubin Negative (Negative) Urine Urobilinogen Positive A (Negative) Ur Leukocyte Esterase Negative (Negative) Urine WBC (Auto) Trace(0-5/hpf) (Absent) Urine RBC (Auto) 3+(>10/hpf) A (Absent) Urine Bacteria Absent (Absent) Urine Glucose Negative (Negative) Microbiology and Other Data: Microbiology 04/08/19 22:14 Stool Occult Blood (DOMONIQUE) - Final Stool Assess/Plan/Problems-Billing Assessment: 78M with HTN, hypothyroid, NORA, asthma, 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 -d/c doxycycline per ID (3) Memory loss Code(s): R41.3 - OTHER AMNESIA SNOMED Code(s): 83748318 Comment: -patient has chronic memory loss issues for the last several years and refusing outpatient work up, per family -patient appears more acutely mildly encephalopathic today with more confusion, but he has been fluctuating between his baseline confusion and (4) Transaminitis Code(s): R74.0 - NONSPEC ELEV OF LEVELS OF TRANSAMNS & LACTIC ACID DEHYDRGNSE SNOMED Code(s): 887787858 Comment: -secondary to babesia -bilirubin normal yesterday -liver US demonstrates fatty liver (5) Hypertension Code(s): I10 - ESSENTIAL (PRIMARY) HYPERTENSION SNOMED Code(s): 59860011 Comment: -overall normotensive -cont home dilt, losartan, amlodipine (6) Asthma Code(s): J45.909 - UNSPECIFIED ASTHMA, UNCOMPLICATED SNOMED Code(s): 220795194 Comment: -cont home Dulera -no evidence of exacerbation (7) BPH (benign prostatic hyperplasia) Code(s): N40.0 - BENIGN PROSTATIC HYPERPLASIA WITHOUT LOWER URINRY TRACT SYMP SNOMED Code(s): 558705635 Comment: -cont tamsulosin (8) Hypothyroid Code(s): E03.9 - HYPOTHYROIDISM, UNSPECIFIED SNOMED Code(s): 95484891 Comment: -TSH at goal -Cont home synthroid (9) Elevated troponin Current Visit: Yes Status: Acute Code(s): R74.8 - ABNORMAL LEVELS OF OTHER SERUM ENZYMES SNOMED Code(s): 436215053 Comment: -patient had minimally elevated troponin which peaked at 0.05 without EKG changes -likely represents ischemic demand especially in setting of acute illness with anemia due to babesia (10) DVT prophylaxis Code(s): Z29.9 - ENCOUNTER FOR PROPHYLACTIC MEASURES, UNSPECIFIED SNOMED Code( s): 348133133 Comment: -cont enoxaparin (11) Full code status Code(s): Z78.9 - OTHER SPECIFIED HEALTH STATUS SNOMED Code(s): 093520980
[2019-04-14] MEDS: Azithromycin 500 mg/250 ml NS 500 MG/250 ML BAG IVPB SCH (13:40)
[2019-04-14 14:11] LABS: Hematocrit 27 % (42-52); Hemoglobin 9.2 g/dL (14.0-18.0)
[2019-04-14] MEDS: Atorvastatin* 10 MG TAB PO SCH (20:30)
[2019-04-14] MEDS: Enoxaparin(*) 40 MG/0.4 ML SYR SUBCUT SCH (20:30)
[2019-04-15] MEDS: Levothyroxine TAB* 150 MCG TAB PO SCH (05:33)
[2019-04-15 07:15] LABS: Calcium 8.7 mg/dL (8.6-10.3); EGFR African American 118.5 (>60); Globulin 3.1 g/dL (2-4); Total Bilirubin 0.9 mg/dL (0.2-1.0); Total Protein 6.1 g/dL (6.4-8.9)
[2019-04-15] MEDS: Mometasone/Formoter 100/5 MDI INH SCH (07:30)
[2019-04-15] MEDS: DOXYcycline IV* 100 MG in NS 0.9% 250 ML* 250 ML IVPB SCH (09:11)
[2019-04-15] MEDS: Atovaquone* 750 MG/5 ML UDC PO SCH (09:12)
[2019-04-15] MEDS: Tamsulosin CAP* 0.4 MG PO SCH (09:14)
[2019-04-15] MEDS: amLODIPine TAB* 5 MG PO SCH (09:14)
[2019-04-15] MEDS: Senna TAB PO SCH (09:14)
[2019-04-15] MEDS: Diltiazem CD CAP* 120 MG PO SCH (09:15)
[2019-04-15] MEDS: Losartan TAB* 25 MG PO SCH (09:15)
[2019-04-15] MEDS: CYANOCOBALAMIN 100 MCG PO SCH (09:16)
[2019-04-15 10:34] VITALS: BP 140/74
--- NOTE | 2019-04-15 23:23 | DS ---
CC: Dr. Miller * DISCHARGE SUMMARY: DATE OF ADMISSION: 04/08/19 DATE OF DISCHARGE: 04/15/19 ATTENDING PHYSICIAN: Dr. Susu Jones * (dictated by YARED Morataya). PRIMARY CARE PROVIDER: Dr. Spence. CONSULTING INFECTIOUS DISEASE PHYSICIAN: Dr. Miller. PRIMARY DIAGNOSIS: Babesiosis. SECONDARY DIAGNOSES: 1. Hypertension. 2. Hyperlipidemia. 3. Hypothyroidism. 4. Mild asthma. 5. Obstructive sleep apnea, on CPAP. 6. Obesity. 7. History of West Nile virus. 8. History of Lyme disease. 9. History of memory loss. STUDIES WHILE IN THE HOSPITAL: Liver ultrasound, impression: Hepatic steatosis with associated hepatomegaly. Bosniak type 1 renal cyst. No followup indicated. PERTINENT LAB DATA: Bilirubin on day of discharge 0.90, AST on the day of discharge is 50, ALT on the day of discharge 88. Hemoglobin on 04/14/19 is 9.2 , hematocrit 27. HISTORY OF PRESENT ILLNESS/HOSPITAL COURSE: Henri Sainz is a 78-year-old white male with past medical history significant for hypertension, hyperlipidemia, hypothyroidism, obstructive sleep apnea, asthma, who presented to the emergency department on 04/08/19 due to not feeling well and fever of 104.3. Please see admitting history and physical dictated by YARED Mcnamara for further information. The patient was ultimately found to have babesiosis during his hospital stay. He was initially treated for empiric coverage for Lyme disease as well with doxycycline given his risk of tick bites ; however, this was later discontinued. He was treated with atovaquone and azithromycin during his stay. He did continue to have anemia, however, this was overall stable for several days during his hospital stay ultimately with hemoglobin of 9.2. He never required transfusion. During his hospital stay, he did frequently have issues with confusion and his orientation. His son and report that this has been an ongoing issue for several years. The patient has refused outpatient workup. I suspect that this is likely due to an underlying dementia but did have mild encephalopathy in the setting of acute illness. During his hospital stay, his percent parasitemia was not able to be calculated in our lab and was sent out. On the day of discharge, patient was feeing well. He denies chest pain, difficulty breathing, dizziness, lightheadedness, nausea, vomiting, abdominal pain, difficulties with urinating or moving his bowels. Additionally, the patient did have an ZANDER on presentation with creatinine of 1.41, which later resolved with IV hydration. Additionally, he had mildly elevated troponin to 0.05 with no EKG changes and this is likely related to ischemic demand of acute illness. PHYSICAL EXAMINATION: Elderly white male, sitting upright in hospital chair, appearing in no acute distress. Head: Normocephalic, atraumatic. Eyes: PERRLA. Sclerae anicteric. ENT: Mucous membranes moist. Neck: Supple. Lungs : Clear to auscultation bilaterally. Cardio: Regular rate and rhythm without murmurs, rubs, or gallops. Abdomen: Soft, nontender, nondistended. Extremities: No clubbing, cyanosis, or edema. Neuro: The patient is alert and oriented x3. No focal deficits. Skin: No jaundice. Skin is warm, dry, and intact. DISCHARGE PLAN: DISCHARGE MEDICATIONS: New medications: 1. Atovaquone 750 mg p.o. b.i.d. to continue for 6.5 days. 2. Azithromycin 500 mg p.o. daily to continue for 6 additional days. Continued home medications: 1. Advair 1 puff inhaled b.i.d. 2. Levothyroxine 175 mcg p.o. every other day and 150 mcg p.o. every other day. 3. Tamsulosin 0.4 mg p.o. daily. 4. Amlodipine 2.5 mg p.o. daily. 5. Diltiazem 120 mg p.o. daily. 6. Losartan 50 mg p.o. daily. 7. Simvastatin 20 mg p.o. at bedtime. 8. Viagra 100 mg p.o. daily p.r.n. 9. Vitamin B12 100 mcg p.o. daily. 10. Ibuprofen 400 mg p.o. at bedtime. 11. Tylenol 1000 mg p.o. q.6 hours p.r.n. DIET: Regular, unrestricted diet. ACTIVITY: The patient may return to normal activity as tolerated. The patient will follow up with infectious disease specialist, Dr. Hussein Miller. He is aware for followup of parasitemia percentage calculation, those are sent to our lab. He will also check treatment further depending on his result. The patient was advised to follow up with his primary care provider within 7 to 10 days but recommends calling earlier and has to schedule an earlier followup, CBC and LFTs check. The patient is advised to return to the emergency department if he experiences jaundice, chest pain, difficulty breathing, loss of consciousness, fever, chills, or any new symptoms. Otherwise , the patient is to continue his normal home medications. He was advised to complete his full course of his antibiotics. The patient was additionally provided with [facility] phone numbers that he may have followup on outpatient basis regarding workup for his memory loss issues. CONDITION ON DISCHARGE: Stable. DISPOSITION: Home. TIME SPENT: Approximately 40 minutes was spent on this discharge; approximately half of this time was spent at the bedside. YARED MORATAYA [id number]/CPS #: [id number] MTDD
== END 2019-04-15 11:36 | disposition home or self-care (01) | DRG 868 ==
LOC: ED 16:05 → MEDTELE 21:54 → OBSVTOIN 04-09 16:02
PROVIDERS: ADMIT Internal Medicine; ATTEND Internal Medicine
PROC: 5A09357 Assistance with Respiratory Ventilation, Less than 24 Consecutive Hours, Continuous Positive Airway Pressure (ICD-10-PCS; principal; 2019-04-10)
DX: B60.0 Babesiosis (principal); Q61.01 Congenital single renal cyst; G93.40 Encephalopathy, unspecified; N17.9 Acute kidney failure, unspecified; I24.8 Other forms of acute ischemic heart disease; D59.4 Other nonautoimmune hemolytic anemias; I10 Essential (primary) hypertension; E78.5 Hyperlipidemia, unspecified; E03.9 Hypothyroidism, unspecified; J45.909 Unspecified asthma, uncomplicated; G47.33 Obstructive sleep apnea (adult) (pediatric); E66.9 Obesity, unspecified; K76.0 Fatty (change of) liver, not elsewhere classified; R16.0 Hepatomegaly, not elsewhere classified; R41.0 Disorientation, unspecified; L30.9 Dermatitis, unspecified; D64.9 Anemia, unspecified; N40.0 Benign prostatic hyperplasia without lower urinary tract symptoms; Z96.651 Presence of right artificial knee joint; Z96.611 Presence of right artificial shoulder joint; R31.9 Hematuria, unspecified; I48.91 Unspecified atrial fibrillation; H26.9 Unspecified cataract; M19.90 Unspecified osteoarthritis, unspecified site; R41.3 Other amnesia; R74.0 Nonspecific elevation of levels of transaminase and lactic acid dehydrogenase [LDH]; K59.09 Other constipation; F41.8 Other specified anxiety disorders; Z68.30 Body mass index [BMI] 30.0-30.9, adult; Z83.3 Family history of diabetes mellitus; Z82.3 Family history of stroke; Z82.49 Family history of ischemic heart disease and other diseases of the circulatory system; Z87.891 Personal history of nicotine dependence; Z72.89 Other problems related to lifestyle
CPT/HCPCS: 36415; 76705; 76857; 80048; 80053; 81003; 81015; 82247; 82248; 82270; 83605; 83735; 84443; 84484; 85014; 85018; 85025; 85027; 85060; 85610; 85652; 85730; 86038; 86140; 86617; 86618; 86757; 86850; 86900; 86901; 87015; 87040; 87086; 87207; 87798; 89240; 93005; 94640; 94660; 99284; A9270-GY; G0378; G8978-GP-CI; G8979-GP-CI; J0456; J1644; J1650; J1885

== ENCOUNTER 2023-06-02 17:24 | Inpatient (IN) ==
[2023-06-02] MEDS ORDERED: cefTRIAXone 1 gm/50 mL D5W 1 GM/50 ML BAG IV ONE (18:40)
[2023-06-02 20:13] LABS: Hematocrit 37.6 % (38-53); Hemoglobin 13.1 g/dL (13.2-16.3); Mean Corpuscular Hemoglobin 30.6 pg (27-33); Mean Corpuscular Hgb Conc 34.9 g/dL (31-36); Mean Corpuscular Volume 87.5 fL (80-97); Mean Platelet Volume 8.1 fL (7.5-11.2); Platelet Count 124 10^3/uL (150-450); Red Cell Distribution Width 14.9 % (12-17); White Blood Count 15.9 10^3/uL (3.6-10.2)
[2023-06-02 20:30] LABS: Albumin 3.6 g/dL (3.2-5.2); Albumin/Globulin Ratio 1.2 (1-3); C Reactive Protein 253.27 mg/L (<8.01); Calcium 8.8 mg/dL (8.6-10.3); Creatinine, Serum 1.64 mg/dL (0.67-1.17); Total Bilirubin 0.8 mg/dL (0.2-1.0); Total Protein 6.6 g/dL (6.4-8.9); eGFR CKD-EPI 41.8 (>60)
[2023-06-02 20:34] LABS: INR 2.24 (0.83-1.13)
[2023-06-02 20:45] LABS: ABS Basophils 0.1 10^3/uL (0.0-0.1); ABS Eosinophils 0.1 10^3/uL (0.0-0.5); ABS Lymphocytes 0.9 10^3/uL (1.0-4.8); ABS Monocytes 1.1 10^3/uL (0.0-1.1); ABS Neutrophils 13.9 10^3/uL (1.5-7.6); Eosinophil % 0.4 %; Lymphocyte % 5.7 %
[2023-06-02] MEDS ORDERED: NS 0.9% 500 ml BAG 500 ML IV ONE (21:18)
[2023-06-02 21:31] LABS: Urine Appearance Cloudy; Urine Bilirubin Negative (Negative); Urine Blood 2+ (Negative); Urine Color Yellow; Urine Glucose Negative (Negative); Urine Ketones Negative (Negative); Urine Nitrite Negative (Negative); Urine Protein 2+(100 mg/dL) (Negative); Urine Specific Gravity 1.024 (1.002-1.030); Urine Urobilinogen Negative (Negative)
[2023-06-02 21:40] LABS: High Sensitivity Troponin 1 Hr 42 pg/mL (<20)
[2023-06-02 21:52] LABS: Urine Bacteria Absent (Absent); Urine Red Blood Cell 2+(6-10/hpf) (Absent); Urine Squamous Epithelial Cell Present (Absent); Urine White Blood Cell 3+(>20/hpf) (Absent)
[2023-06-02] MEDS ORDERED: Iodixanol (CONTRAST) 320 MG/ML 100 ML SDV IV ONE (23:48)
[2023-06-03] MEDS ORDERED: Lactated Ringers 1000 ml BAG 1,000 ML IV ONE (03:18)
[2023-06-03 04:56] LABS: Magnesium 2.5 mg/dL (1.9-2.7)
[2023-06-03 06:48] LABS: ABS Eosinophils 0.1 10^3/uL (0.0-0.5); ABS Lymphocytes 0.5 10^3/uL (1.0-4.8); ABS Monocytes 0.9 10^3/uL (0.0-1.1); ABS Neutrophils 11.5 10^3/uL (1.5-7.6); ABS Nucleated RBC 0.01 10^3/ul; Eosinophil % 0.5 %; Hematocrit 36.6 % (38-53); Hemoglobin 12.5 g/dL (13.2-16.3); Lymphocyte % 3.8 %; Mean Corpuscular Hemoglobin 30.1 pg (27-33); Mean Corpuscular Hgb Conc 34.2 g/dL (31-36); Mean Corpuscular Volume 87.8 fL (80-97); Mean Platelet Volume 7.7 fL (7.5-11.2); Platelet Count 124 10^3/uL (150-450); Red Blood Count 4.17 10^6/uL (4.06-5.63)
[2023-06-03 07:02] LABS: Calcium 8.6 mg/dL (8.6-10.3); Creatinine, Serum 1.18 mg/dL (0.67-1.17); Magnesium 2.2 mg/dL (1.9-2.7); Potassium 4.1 mmol/L (3.5-5.0)
[2023-06-03] MEDS ORDERED: NS 0.9% 1000 ml BAG 1,000 ML IV ONE (08:49)
[2023-06-03] MEDS: Mometasone/Formoter 100/5 MDI INH SCH ×3 (09:07→20:49)
[2023-06-03] MEDS ORDERED: cefTRIAXone 1 gm/50 mL D5W 1 GM/50 ML BAG IV SCH (20:00)
[2023-06-03] MEDS: cefTRIAXone 1 gm/50 mL D5W 1 GM/50 ML BAG IV SCH (21:23)
[2023-06-04] MEDS: Mometasone/Formoter 100/5 MDI INH SCH ×2 (07:15→19:35)
[2023-06-04 07:57] LABS: ABS Eosinophils 0.2 10^3/uL (0.0-0.5); ABS Lymphocytes 0.6 10^3/uL (1.0-4.8); ABS Neutrophils 8.7 10^3/uL (1.5-7.6); Eosinophil % 1.8 %; Hematocrit 36.1 % (38-53); Hemoglobin 12.6 g/dL (13.2-16.3); Lymphocyte % 5.8 %; Mean Corpuscular Hemoglobin 30.5 pg (27-33); Mean Corpuscular Hgb Conc 34.9 g/dL (31-36); Mean Corpuscular Volume 87.4 fL (80-97); Mean Platelet Volume 8.3 fL (7.5-11.2); Platelet Count 131 10^3/uL (150-450); Red Blood Count 4.13 10^6/uL (4.06-5.63); Red Cell Distribution Width 14.9 % (12-17); White Blood Count 10.5 10^3/uL (3.6-10.2)
[2023-06-04 08:07] LABS: Calcium 8.1 mg/dL (8.6-10.3); Creatinine, Serum 0.95 mg/dL (0.67-1.17); eGFR CKD-EPI 80.4 (>60)
[2023-06-04] MEDS: cefTRIAXone 1 gm/50 mL D5W 1 GM/50 ML BAG IV SCH (21:12)
[2023-06-04] MEDS ORDERED: Haloperidol 5 mg/ml SDV IV/IM 5 MG/ML AMP IV SLOW PU ONE (23:11)
[2023-06-05 06:01] LABS: Hematocrit 36.3 % (38-53); Hemoglobin 12.3 g/dL (13.2-16.3); Mean Corpuscular Hemoglobin 29.9 pg (27-33); Mean Corpuscular Volume 87.8 fL (80-97); Mean Platelet Volume 8.4 fL (7.5-11.2); Platelet Count 155 10^3/uL (150-450); Red Blood Count 4.13 10^6/uL (4.06-5.63); Red Cell Distribution Width 14.8 % (12-17); White Blood Count 11.1 10^3/uL (3.6-10.2)
[2023-06-05 06:21] LABS: Calcium 8.6 mg/dL (8.6-10.3); Creatinine, Serum 0.84 mg/dL (0.67-1.17); eGFR CKD-EPI 87.6 (>60)
[2023-06-05 06:22] LABS: ABS Basophils 0.1 10^3/uL (0.0-0.1); ABS Eosinophils 0.3 10^3/uL (0.0-0.5); ABS Lymphocytes 0.8 10^3/uL (1.0-4.8); ABS Monocytes 1.1 10^3/uL (0.0-1.1); ABS Neutrophils 8.9 10^3/uL (1.5-7.6); ABS Nucleated RBC 0.01 10^3/ul; Eosinophil % 2.4 %; Lymphocyte % 7.4 %; Nucleated Red Blood Cells % 0.1 /100 WBC (0.0-0.4)
[2023-06-05] MEDS: Mometasone/Formoter 100/5 MDI INH SCH ×2 (07:37→20:17)
[2023-06-05 22:39] LABS: Urine Osmo 611 mOsm/kg (150-1150)
[2023-06-06] MEDS ORDERED: Benzocaine (plain) Lozenge 15 MG MT PRN (02:03)
[2023-06-06] MEDS ORDERED: Benzocaine (plain) Lozenge 15 MG MT ONE (02:03)
[2023-06-06] MEDS: Mometasone/Formoter 100/5 MDI INH SCH ×2 (07:09→18:06)
[2023-06-06 07:20] LABS: Calcium 8.4 mg/dL (8.6-10.3); Creatinine, Serum 0.89 mg/dL (0.67-1.17); Potassium 4.1 mmol/L (3.5-5.0); eGFR CKD-EPI 86.1 (>60)
[2023-06-07] MEDS: Mometasone/Formoter 100/5 MDI INH SCH ×2 (07:51→20:15)
[2023-06-08] MEDS: Mometasone/Formoter 100/5 MDI INH SCH (07:27)
[2023-06-08 09:12] LABS: Rapid COVID-19 Molecular Undetected (Undetected)
[2023-06-08 12:41] VITALS: BP 124/50
== END 2023-06-08 11:40 | DRG 871 ==
LOC: EDHOLD 17:24 → ED 17:24 → SUATTDRO 06-03 01:54 → MEDTELE 06-03 19:30
PROVIDERS: ADMIT Student in an Organized Health Care Education/Training Program; ATTEND Internal Medicine